=== PATIENT | female | born 1945 | race Caucasian/White ===

== ENCOUNTER → 2016-06-28 | Outpatient (CLI) | payer MEDICARE ==
[2014-04-08 13:26] VITALS: BP 121/60
[~2016-06-28] MED LIST: CETI10TA22 PO; ESTR1.5T2 PO; HYDR25TA9 PO; LEVO75TA PO; MELO-150 PO
--- NOTE | 2016-06-28 11:35 | KCIC ---
PROCEDURE Brain MRI without contrast. HISTORY Dizziness. Upper extremity numbness. TECHNIQUE Multiplanar and multi sequence magnetic resonance imaging of the brain was performed without contrast. COMPARISON None. FINDINGS There are foci of restricted diffusion within the right occipital lobe cortex, right caudate nucleus and putamen, and scattered throughout the bilateral frontal lobe cortex and subcortical white matter and the right parietal periventricular white matter, consistent with foci of acute or subacute infarction. There is no evidence of hemorrhage. There is no mass effect or midline shift. There are extensive scattered focal areas of T2/FLAIR hyperintensity throughout the cerebral white matter, likely due to chronic small vessel disease. There is cerebral volume loss with compensatory enlargement of the ventricles. The orbits are unremarkable. The paranasal sinuses mastoid air cells are unremarkable. There is a tiny focus of encephalomalacia within the left cerebellum. There is an absent flow void within the distal left vertebral artery, likely due to occlusion. IMPRESSION 1. Multiple foci of acute or subacute infarction within the bilateral cerebral cortex and subcortical white matter and right parietal periventricular white matter and right caudate nucleus and putamen. No associated hemorrhage is seen. 2. Absent flow void within the distal left internal carotid artery likely due to occlusion. This can be better assessed with a head MRA or head CTA. 3. Multiple scattered areas of signal change throughout the cerebral white matter, likely due to chronic small vessel disease. 4. Cerebral atrophy. Findings were discussed with the referring RN ADVICE, Mare Gold, at 1130 hours on 06/28/2016. Electronically signed by: Mare Fontana (Jun 28, 2016 11:33:50)
== END | disposition home or self-care (01) ==
LOC: KCIC MRI 09:35
PROVIDERS: ATTEND Family Medicine
DX: R42 Dizziness and giddiness (principal); R20.0 Anesthesia of skin
CPT/HCPCS: 70551

== ENCOUNTER 2016-06-29 17:16 | Inpatient (IN) | payer MEDICARE ==
[~2016-06-29] VITALS: Ht 157.5 cm; Wt 61.9 kg
--- NOTE | 2016-06-29 17:22 | PHYS DOC ---
Adult General Chief Complaint Chief Complaint: ABNORMAL LABS HPI HPI Patient is a 71 year old female presenting to the emergency department for evaluation of increased confusion and decreased energy left hand tingling left facial droop and possible worsening gait and speaking. Patient has been having some of these issues off and on for at least several weeks. Family has noticed the facial droop and abnormal gait over the past several days. Patient says that she feels well overall however family says that she is deathly off her baseline. She had an MRI done yesterday with the report as below. She does not take an aspirin daily. PROCEDURE Brain MRI without contrast. HISTORY Dizziness. Upper extremity numbness. TECHNIQUE Multiplanar and multi sequence magnetic resonance imaging of the brain was performed without contrast. COMPARISON None. FINDINGS There are foci of restricted diffusion within the right occipital lobe cortex, right caudate nucleus and putamen, and scattered throughout the bilateral frontal lobe cortex and subcortical white matter and the right parietal periventricular white matter, consistent with foci of acute or subacute infarction. There is no evidence of hemorrhage. There is no mass effect or midline shift. There are extensive scattered focal areas of T2/FLAIR hyperintensity throughout the cerebral white matter, likely due to chronic small vessel disease. There is cerebral volume loss with compensatory enlargement of the ventricles. The orbits are unremarkable. The paranasal sinuses mastoid air cells are unremarkable. There is a tiny focus of encephalomalacia within the left cerebellum. There is an absent flow void within the distal left vertebral artery, likely due to occlusion. IMPRESSION 1. Multiple foci of acute or subacute infarction within the bilateral cerebral cortex and subcortical white matter and right parietal periventricular white matter and right caudate nucleus and putamen. No associated hemorrhage is seen. 2. Absent flow void within the distal left internal carotid artery likely due to occlusion. This can be better assessed with a head MRA or head CTA. 3. Multiple scattered areas of signal change throughout the cerebral white matter, likely due to chronic small vessel disease. 4. Cerebral atrophy. Findings were discussed with the referring DERRICK BOAT OPERATOR, Mare Gold, at 1130 hours on 06/28/2016. Electronically signed by: Mare Owens (Jun 28, 2016 11:33:50) DICTATED and SIGNED BY: MARE OWENS MD DATE: 06/28/16 1135 Review of Systems Review of Systems Constitutional: Denies fever or chills [] Eyes: Denies change in visual acuity, redness, or eye pain [] HENT: Denies nasal congestion or sore throat [] Respiratory: Denies cough or shortness of breath [] Cardiovascular: No additional information not addressed in HPI [] GI: Denies abdominal pain, nausea, vomiting, bloody stools or diarrhea [] : Denies dysuria or hematuria [] Musculoskeletal: Denies back pain or joint pain [] Integument: Denies rash or skin lesions [] Neurologic: Denies headache, focal weakness. + sensory changes [] Allergies Allergies Allergies Coded Allergies Type Severity Reaction Last Updated Verified No Known Drug Allergies 04/08/14 No Physical Exam Physical Exam Constitutional: Well developed, well nourished, no acute distress, non-toxic appearance. [] HENT: Normocephalic, atraumatic, bilateral external ears normal, oropharynx moist, no oral exudates, nose normal. [] Eyes: PERRLA, EOMI, conjunctiva normal, no discharge. [] Neck: Normal range of motion, no tenderness, supple, no stridor. [] Cardiovascular:Heart rate regular rhythm, no murmur [] Lungs & Thorax: Bilateral breath sounds clear to auscultation [] Abdomen: Bowel sounds normal, soft, no tenderness, no masses, no pulsatile masses. [] Skin: Warm, dry, no erythema, no rash. [] Back: No tenderness, no CVA tenderness. [] Extremities: No tenderness, no cyanosis, no clubbing, ROM intact, no edema. [] Neurologic: Alert and oriented X 3, normal motor function, normal sensory function, no focal deficits noted. Normal cranial nerve II through XII. Finger to nose was slightly discriminated more so noted on left arm. Heel to trevino slightly desquamated bilaterally however grossly intact. Current Patient Data Vital Signs Vital Signs Date Time Temp Pulse Resp B/P Pulse Ox O2 Delivery O2 Flow Rate FiO2 06/29/16 17:28 98.4 78 18 162/70 99 Room Air 98.4 Lab Values Laboratory Tests Test 06/29/16 17:45 White Blood Count 11.8x10^3/uL (4.0-11.0) H Red Blood Count 4.46x10^6/uL (3.50-5.40) Hemoglobin 14.6g/dL (12.0-15.5) Hematocrit 42.6% (36.0-47.0) Mean Corpuscular Volume 96fL (79-100) Mean Corpuscular Hemoglobin 33pg (25-35) Mean Corpuscular Hemoglobin Concent 34g/dL (31-37) Red Cell Distribution Width 13.4% (11.5-14.5) Platelet Count 237x10^3/uL (140-400) Neutrophils (%) (Auto) 67% (31-73) Lymphocytes (%) (Auto) 22% (24-48) L Monocytes (%) (Auto) 8% (0-9) Eosinophils (%) (Auto) 2% (0-3) Basophils (%) (Auto) 1% (0-3) Neutrophils # (Auto) 8.0x10^3uL (1.8-7.7) H Lymphocytes # (Auto) 2.6x10^3/uL (1.0-4.8) Monocytes # (Auto) 0.9x10^3/uL (0.0-1.1) Eosinophils # (Auto) 0.2x10^3/uL (0.0-0.7) Basophils # (Auto) 0.1x10^3/uL (0.0-0.2) Prothrombin Time 12.9SEC (11.7-14.0) Prothrombin Time INR 1.0 (0.8-1.1) PTT 30SEC (24-38) Sodium Level 142mmol/L (136-145) Potassium Level 3.6mmol/L (3.5-5.1) Chloride Level 104mmol/L (98-107) Carbon Dioxide Level 29mmol/L (21-32) Anion Gap 9 (6-14) Blood Urea Nitrogen 15mg/dL (7-20) Creatinine 0.6mg/dL (0.6-1.0) Estimated GFR (Cockcroft-Gault) 98.3 BUN/Creatinine Ratio 25 (6-20) H Glucose Level 88mg/dL (70-99) Calcium Level 9.1mg/dL (8.5-10.1) Total Bilirubin 0.3mg/dL (0.2-1.0) Aspartate Amino Transferase (AST) 17U/L (15-37) Alanine Aminotransferase (ALT) 26U/L (14-59) Alkaline Phosphatase 45U/L (46-116) L Troponin I Quantitative < 0.017ng/mL (0.000-0.055) LP-Rsv-X-Type Natriuretic Peptide 31pg/mL (0-124) Total Protein 6.9g/dL (6.4-8.2) Albumin 3.6g/dL (3.4-5.0) Albumin/Globulin Ratio 1.1 (1.0-1.7) Thyroid Stimulating Hormone (TSH) 0.799uIU/mL (0.358-3.74) Laboratory Tests 06/29/16 17:45 Laboratory Tests 06/29/16 17:45 EKG EKG Normal sinus rhythm with normal axis no deviation with no ST elevation or depression and normal T waves. Radiology/Procedures Radiology/Procedures [] Course & Med Decision Making Course & Med Decision Making Patients with acute or subacute infarct on MRI which is concerning. I spoke to the neurologist Dr. mandujano and she recommended a daily aspirin and addition to usual stroke workup and admission for further evaluation and treatment. Patient accepted by Dr. Duncan. Dragcristian Disclaimer Dragon Disclaimer This electronic medical record was generated, in whole or in part, using a voice recognition dictation system. Departure Departure Impression: Primary Impression: Acute CVA (cerebrovascular accident) Disposition: ADMITTED INPATIENT Admitting Physician: Kacey Duncan Condition: STABLE Referrals: LESLIE HU MD (PCP) VÍCTOR BENTLEY DO Jun 29, 2016 17:22
[2016-06-29] MEDS ORDERED: ONDANSETRON PF 4 MG/2 ML VIAL. IV PRN (18:00)
[2016-06-29] MEDS ORDERED: fentaNYL PF VIAL 100 MCG/2 ML VIAL IV PRN (18:00)
[2016-06-29] MEDS ORDERED: ASPIRIN ENTERIC COATED 325 MG TABLET.DR. PO ONE (18:00)
[2016-06-29 18:08] LABS: BASO # 0.1 x10^3/uL (0.0-0.2); BASO % 1 % (0-3); EOS % 2 % (0-3); HEMATOCRIT 42.6 % (36.0-47.0); HEMOGLOBIN 14.6 g/dL (12.0-15.5); LYMPH # 2.6 x10^3/uL (1.0-4.8); LYMPH % 22 % (24-48); MEAN CORPUSCULAR HEMOGLOBIN 33 pg (25-35); MEAN CORPUSCULAR HGB CONC 34 g/dL (31-37); MEAN CORPUSCULAR VOLUME 96 fL (79-100); MONO % 8 % (0-9); NEUT % 67 % (31-73); PLATELET COUNT 237 x10^3/uL (140-400); RED BLOOD COUNT 4.46 x10^6/uL (3.50-5.40); RED CELL DISTRIBUTION WIDTH 13.4 % (11.5-14.5); WHITE BLOOD COUNT 11.8 x10^3/uL (4.0-11.0)
[2016-06-29 18:16] LABS: PROTHROMBIN TIME PATIENT 12.9 SEC (11.7-14.0)
[2016-06-29 19:03] LABS: CALCIUM 9.1 mg/dL (8.5-10.1); CREATININE 0.6 mg/dL (0.6-1.0); GFR 98.3; POTASSIUM 3.6 mmol/L (3.5-5.1)
--- NOTE | 2016-06-29 19:07 | ACF ---
Admission Forms Criteria TELEMETRY CARE Telemetry Admission Guidelines (Place 'X' for any and all applicable criteria): Admission to telemetry [A] may be indicated for ANY ONE of the following(1)(2)(3 )(4)(5): [ ]I. Cardiac disease, including ANY ONE of the following (9)(10)(11)(12)(13 ): [ ]a) Postacute DE [ ]b) Low-risk patients with ST-segment elevation DE who have undergone successful percutaneous coronary intervention [ ]c) Unstable angina [ ]d) Suspected DE (until it is ruled out) [ ]e) Post cardiac surgery (first 48 to 72 hours unless complications occur) [ ]f) Acute arrhythmias (including significant tachycardia or bradycardia) [B] [ ]g) Firing of an implantable cardioverter defibrillator [C] [ ]h) Suspected pacemaker or implantable cardioverter defibrillator malfunction (10) [ ]i) New administration or adjustment of an antiarrhythmic drug [D ] [ ]j) Child admitted for acute congestive heart failure [ ]j) Long QT syndrome [ ]k) Advanced heart block (eg, second-degree Mobitz type II, third- degree heart block) [ ]l) Acute myocarditis or pericarditis [ ]m) Short-term (ambulatory or inpatient) monitoring after a cardiac procedure as indicated by ANY ONE of the following [E]: [ ]i) Electrophysiologic studies [ ]ii) Percutaneous coronary intervention with stent placement [ ]iii) Pacemaker placement with cardiac conduction defect [ ]iv) Implantable cardiac defibrillator placement [ ]II. Drug overdose or poisoning with substance that causes arrhythmias or QT prolongation (eg, phenothiazines, sympathomimetic agents, cyclic antidepressants, digitalis, antiarrhythmic drugs)(15) [ ]III. Short-term (ambulatory or inpatient) monitoring after therapeutic or diagnostic procedure requiring conscious sedation or anesthesia (eg, endoscopy, elective cardioversion) [x]IV. Acute cerebrovascular even[F](18) [ ]V. Massive blood transfusion (eg, at least 10 units of packed red blood cells in 24 hours) [ ]. Variceal bleeding after endoscopy, sclerotherapy, or IV vasopressin [ ]VII. Uncorrected electrolyte abnormalities associated with an increased risk of dangerous arrhythmia [G]; examples include [ ]a) Hyperkalemia with attributable ECG changes [ ]b) Potassium greater than 6.5 mmol/L (mEq/L) in a patient without history of chronic renal disease [ ]c) Prolonged QT attributed to hypokalemia, hypomagnesemia, or hypocalcemia [ ]VIII.Unexplained syncope or other neurologic event suspected of being due to arrhythmia due to a finding that increases risk; examples include(19)(20)(21): [ ]a) High-risk ECG findings (eg, bifascicular block, bradycardia, abnormal QT interval, ventricular pre- excitation) [ ]b) History of previous syncope due to arrhythmia [ ]c) Abnormal ventricular function (eg, reduced ejection fraction ) [ ]d) Exertional or supine syncope [ ]e) Concerning syncope characteristics (eg, sudden loss of consciousness without prodrome) [ ]f) Family history of sudden [ ]g) Use of arrhythmogenic medication [ ]h) Suspected cardiac ischemia [ ]i) Known channelopathy (eg, long QT syndrome, Brugada syndrome, or catecholaminergic paroxysmal ventricular tachycardia) [ ]j) Known structural heart disease (eg, hypertrophic cardiomyopathy , severe valvular disease) [ ]k) Palpitations preceding syncope The original [employer] content created by [employer] has been revised. The portions of the content which have been revised are identified through the use of italic text or in bold, and [employer] has neither reviewed nor approved the modified material. All other unmodified content is copyright [employer]. Please see references footnoted in the original [employer] edition 2015 Admission Criteria Met?: Yes IQRA CALZADA Jun 29, 2016 19:07
[2016-06-29 19:08] LABS: ALBUMIN 3.6 g/dL (3.4-5.0); ALBUMIN/GLOBULIN RATIO 1.1 (1.0-1.7); TOTAL BILIRUBIN 0.3 mg/dL (0.2-1.0); TOTAL PROTEIN 6.9 g/dL (6.4-8.2)
[2016-06-29 19:35] VITALS: BP 141/60
--- NOTE | 2016-06-29 21:48 | RAD ---
PROCEDURE Carotid duplex examination HISTORY Stroke. TECHNIQUE Duplex sonography of the cervical portion of both carotid arteries was performed including color flow imaging and spectral waveform analysis with flow velocity measurement and rodriguez scale evaluation. COMPARISON None available. FINDINGS Right side: Peak systolic flow velocity of the CCA is 60 cm/sec. Peak systolic flow velocity of the ICA is 60 cm/sec. Thus, the ICA/CCA ratio is 1. Peak end diastolic flow velocity of the ICA is 35 cm/sec. The peak systolic velocity of the ECA is 91 cm/sec. Left side: Peak systolic flow velocity of the CCA is 43 cm/sec. Peak systolic flow velocity of the ICA is 0 cm/sec. Thus, the ICA/CCA ratio is 0. Peak end diastolic flow velocity of the ICA is 0 cm/sec. Peak systolic flow velocity of the ECA is 60 cm/sec. The left ICA is occluded. There is abnormal waveform within the right ICA. There is a high resistance waveform of the diastolic flow within the right ICA consistent with more distal occlusion. In addition, there is trickle flow through the proximal and mid right ICA. Antegrade vertebral flow is seen bilaterally. IMPRESSION Occluded left ICA. Based on abnormal waveforms, there is a probable distal right ICA occlusion as well. Trickle flow is seen within the more proximal to mid right ICA. MRA of the head/neck may be helpful for further evaluation. Note-this report was called to the patient's floor nurse Carisa at 9:46 p.m. on June 29, 2016. Electronically signed by: Sharad Shi MD (Jun 29, 2016 21:46:36)
[2016-06-29] MEDS ORDERED: predniSONE 20 MG TABLET PO ONE (23:30)
[2016-06-29 23:35] VITALS: BP 109/43
[2016-06-30 03:30] VITALS: BP 132/56
--- NOTE | 2016-06-30 04:04 | HP ---
ADMIT DATE: 06/29/2016 CHIEF COMPLAINT: Mental status change, abnormal MRI. 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 Her granddaughter is a nurse in our ICU. She states that the patient was sent for an MRI and the doctor called her and states that the MRI was abnormal and she wanted her to go to the hospital. After being evaluated in our Emergency Room, we have admitted her to the floor. We have consulted Dr. Russell. It appears she has multiple strokes on her MRI. 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 I plan to check a sed rate to make sure that the patient is not having some type of vasculitis as well. PAST MEDICAL HISTORY: Asthma, hypothyroidism, allergic rhinitis, hypertension. ALLERGIES: None. FAMILY HISTORY: Hypertension. SOCIAL HISTORY: She is retired. She does not drink, smoke or take drugs. She lives at home with her granddaughter. MEDICATIONS: Reviewed, please refer to the MRAD. REVIEW OF SYSTEMS: Unobtainable. The patient is too confused, but the granddaughter explains that she has been having intermittent bouts of blindness and mental status change. PHYSICAL EXAMINATION: VITAL SIGNS: Temperature afebrile, pulse 78, respirations 18, blood pressure 144/90. GENERAL: She is awake. She seems like she understands what I am saying, but she really does not answer my questions very well. HEART: Distant S1, S2. LUNGS: Clear. ABDOMEN: Soft, decreased bowel sounds. EXTREMITIES: Trace edema. SKIN: No rashes. PSYCHIATRIC: She is depressed. VASCULAR: Good capillary refill. ENDOCRINE: No thyromegaly. LYMPHATICS: No cervical nodes. HEMATOPOIETIC: No obvious bruising. NEUROLOGICAL: She moves all extremities. She is able to tell me her name. She does not really tell me the year, although when I asked her if it is 2017, she says yes and seems to really understand that it actually is the right year. LABORATORY DATA: White count was elevated at 11. The other labs were basically normal. MRI of the brain shows multiple areas of strokes. 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 ASSESSMENT AND PLAN: Multiple areas of strokes with abnormal MRI imaging and abnormal ultrasound of the carotids in an elderly female who has also been having intermittent episodes of possible amaurosis fugax. I am going to check a sed rate. We have consulted Dr. Russell. We are going to check an MRA of the brain. I will empirically start her on prednisone 60 mg until the sed rate gets back. If it is high, we will continue with the prednisone. Physical therapy, occupational therapy to evaluate and treat. Continue home medicines, cardiac monitoring. Would like to consider heparin therapy, but we will await Dr. Russell's input. She will almost certainly need fpc unit after this admit, but the family is still considering other options with this. Long-term prognosis is guarded. We will also check urinalysis. AMY ALFORD DO DR: WILMAN/mi JOB#: [id number] / [id number]
[2016-06-30 05:16] LABS: CHOLESTEROL/HDL RATIO 3.6
[2016-06-30 05:22] LABS: BASO % 0 % (0-3); EOS % 2 % (0-3); HEMATOCRIT 40.9 % (36.0-47.0); HEMOGLOBIN 14.2 g/dL (12.0-15.5); LYMPH # 2.3 x10^3/uL (1.0-4.8); LYMPH % 22 % (24-48); MEAN CORPUSCULAR HEMOGLOBIN 33 pg (25-35); MEAN CORPUSCULAR HGB CONC 35 g/dL (31-37); MEAN CORPUSCULAR VOLUME 94 fL (79-100); MONO % 7 % (0-9); NEUT % 69 % (31-73); PLATELET COUNT 228 x10^3/uL (140-400); RED BLOOD COUNT 4.35 x10^6/uL (3.50-5.40); RED CELL DISTRIBUTION WIDTH 13.4 % (11.5-14.5); WHITE BLOOD COUNT 10.6 x10^3/uL (4.0-11.0)
[2016-06-30 05:31] LABS: ALBUMIN 3.2 g/dL (3.4-5.0); ALBUMIN/GLOBULIN RATIO 0.9 (1.0-1.7); CALCIUM 8.7 mg/dL (8.5-10.1); CREATININE 0.6 mg/dL (0.6-1.0); GFR 98.3; POTASSIUM 3.2 mmol/L (3.5-5.1); TOTAL BILIRUBIN 0.5 mg/dL (0.2-1.0); TOTAL PROTEIN 6.6 g/dL (6.4-8.2)
[2016-06-30] MEDS: LEVOTHYROXINE 75 MCG TABLET PO SCH (06:34)
[2016-06-30 07:00] VITALS: BP 130/54
--- NOTE | 2016-06-30 07:31 | PDOC ---
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 consulted, Telemetry PT/OT bedside speech and swallow Lipid Panel better. Vitals Vitals Vital Signs Date Time Temp Pulse Resp B/P Pulse Ox O2 Delivery O2 Flow Rate FiO2 06/30/16 03:30 97.9 74 18 132/56 93 Room Air 97.9 Physical Exam General: Alert, Oriented X3, Cooperative Heart: Normal S1, Normal S2 Lungs: Clear, Wheezing Extremities: Other (rue ST 4/5) Labs LABS Laboratory Tests Test 06/29/16 17:45 06/30/16 04:10 06/30/16 04:30 White Blood Count 11.8x10^3/uL (4.0-11.0) 10.6x10^3/uL (4.0-11.0) Red Blood Count 4.46x10^6/uL (3.50-5.40) 4.35x10^6/uL (3.50-5.40) Hemoglobin 14.6g/dL (12.0-15.5) 14.2g/dL (12.0-15.5) Hematocrit 42.6% (36.0-47.0) 40.9% (36.0-47.0) Mean Corpuscular Volume 96fL (79-100) 94fL (79-100) Mean Corpuscular Hemoglobin 33pg (25-35) 33pg (25-35) Mean Corpuscular Hemoglobin Concent 34g/dL (31-37) 35g/dL (31-37) Red Cell Distribution Width 13.4% (11.5-14.5) 13.4% (11.5-14.5) Platelet Count 237x10^3/uL (140-400) 228x10^3/uL (140-400) Neutrophils (%) (Auto) 67% (31-73) 69% (31-73) Lymphocytes (%) (Auto) 22% (24-48) 22% (24-48) Monocytes (%) (Auto) 8% (0-9) 7% (0-9) Eosinophils (%) (Auto) 2% (0-3) 2% (0-3) Basophils (%) (Auto) 1% (0-3) 0% (0-3) Neutrophils # (Auto) 8.0x10^3uL (1.8-7.7) 7.3x10^3uL (1.8-7.7) Lymphocytes # (Auto) 2.6x10^3/uL (1.0-4.8) 2.3x10^3/uL (1.0-4.8) Monocytes # (Auto) 0.9x10^3/uL (0.0-1.1) 0.7x10^3/uL (0.0-1.1) Eosinophils # (Auto) 0.2x10^3/uL (0.0-0.7) 0.2x10^3/uL (0.0-0.7) Basophils # (Auto) 0.1x10^3/uL (0.0-0.2) 0.0x10^3/uL (0.0-0.2) Prothrombin Time 12.9SEC (11.7-14.0) Prothromb Time International Ratio 1.0 (0.8-1.1) Activated Partial Thromboplast Time 30SEC (24-38) Sodium Level 142mmol/L (136-145) 141mmol/L (136-145) Potassium Level 3.6mmol/L (3.5-5.1) 3.2mmol/L (3.5-5.1) Chloride Level 104mmol/L (98-107) 105mmol/L (98-107) Carbon Dioxide Level 29mmol/L (21-32) 29mmol/L (21-32) Anion Gap 9 (6-14) 7 (6-14) Blood Urea Nitrogen 15mg/dL (7-20) 16mg/dL (7-20) Creatinine 0.6mg/dL (0.6-1.0) 0.6mg/dL (0.6-1.0) Estimated GFR (Cockcroft-Gault) 98.3 98.3 BUN/Creatinine Ratio 25 (6-20) 27 (6-20) Glucose Level 88mg/dL (70-99) 110mg/dL (70-99) Calcium Level 9.1mg/dL (8.5-10.1) 8.7mg/dL (8.5-10.1) Total Bilirubin 0.3mg/dL (0.2-1.0) 0.5mg/dL (0.2-1.0) Aspartate Amino Transf (AST/SGOT) 17U/L (15-37) 16U/L (15-37) Alanine Aminotransferase (ALT/SGPT) 26U/L (14-59) 22U/L (14-59) Alkaline Phosphatase 45U/L (46-116) 45U/L (46-116) Troponin I Quantitative < 0.017ng/mL (0.000-0.055) AK-Cat-G-Type Natriuretic Peptide 31pg/mL (0-124) Total Protein 6.9g/dL (6.4-8.2) 6.6g/dL (6.4-8.2) Albumin 3.6g/dL (3.4-5.0) 3.2g/dL (3.4-5.0) Albumin/Globulin Ratio 1.1 (1.0-1.7) 0.9 (1.0-1.7) Thyroid Stimulating Hormone (TSH) 0.799uIU/mL (0.358-3.74) Triglycerides Level 115mg/dL (0-150) Cholesterol Level 149mg/dL (0-200) LDL Cholesterol, Calculated 85mg/dL (0-100) VLDL Cholesterol, Calculated 23mg/dL (0-40) Non-HDL Cholesterol Calculated 108mg/dL (0-129) HDL Cholesterol 41mg/dL (40-60) Cholesterol/HDL Ratio 3.6 Assessment and Plan Assessmemt and Plan Problems Medical Problems: (1) Acute CVA (cerebrovascular accident) Status: Acute Problems: Comment Review of Relevant I have reviewed the following items page (where applicable) has been applied. Labs Laboratory Tests Test 06/29/16 17:45 06/30/16 04:10 06/30/16 04:30 White Blood Count 11.8x10^3/uL (4.0-11.0) 10.6x10^3/uL (4.0-11.0) Red Blood Count 4.46x10^6/uL (3.50-5.40) 4.35x10^6/uL (3.50-5.40) Hemoglobin 14.6g/dL (12.0-15.5) 14.2g/dL (12.0-15.5) Hematocrit 42.6% (36.0-47.0) 40.9% (36.0-47.0) Mean Corpuscular Volume 96fL (79-100) 94fL (79-100) Mean Corpuscular Hemoglobin 33pg (25-35) 33pg (25-35) Mean Corpuscular Hemoglobin Concent 34g/dL (31-37) 35g/dL (31-37) Red Cell Distribution Width 13.4% (11.5-14.5) 13.4% (11.5-14.5) Platelet Count 237x10^3/uL (140-400) 228x10^3/uL (140-400) Neutrophils (%) (Auto) 67% (31-73) 69% (31-73) Lymphocytes (%) (Auto) 22% (24-48) 22% (24-48) Monocytes (%) (Auto) 8% (0-9) 7% (0-9) Eosinophils (%) (Auto) 2% (0-3) 2% (0-3) Basophils (%) (Auto) 1% (0-3) 0% (0-3) Neutrophils # (Auto) 8.0x10^3uL (1.8-7.7) 7.3x10^3uL (1.8-7.7) Lymphocytes # (Auto) 2.6x10^3/uL (1.0-4.8) 2.3x10^3/uL (1.0-4.8) Monocytes # (Auto) 0.9x10^3/uL (0.0-1.1) 0.7x10^3/uL (0.0-1.1) Eosinophils # (Auto) 0.2x10^3/uL (0.0-0.7) 0.2x10^3/uL (0.0-0.7) Basophils # (Auto) 0.1x10^3/uL (0.0-0.2) 0.0x10^3/uL (0.0-0.2) Prothrombin Time 12.9SEC (11.7-14.0) Prothromb Time International Ratio 1.0 (0.8-1.1) Activated Partial Thromboplast Time 30SEC (24-38) Sodium Level 142mmol/L (136-145) 141mmol/L (136-145) Potassium Level 3.6mmol/L (3.5-5.1) 3.2mmol/L (3.5-5.1) Chloride Level 104mmol/L (98-107) 105mmol/L (98-107) Carbon Dioxide Level 29mmol/L (21-32) 29mmol/L (21-32) Anion Gap 9 (6-14) 7 (6-14) Blood Urea Nitrogen 15mg/dL (7-20) 16mg/dL (7-20) Creatinine 0.6mg/dL (0.6-1.0) 0.6mg/dL (0.6-1.0) Estimated GFR (Cockcroft-Gault) 98.3 98.3 BUN/Creatinine Ratio 25 (6-20) 27 (6-20) Glucose Level 88mg/dL (70-99) 110mg/dL (70-99) Calcium Level 9.1mg/dL (8.5-10.1) 8.7mg/dL (8.5-10.1) Total Bilirubin 0.3mg/dL (0.2-1.0) 0.5mg/dL (0.2-1.0) Aspartate Amino Transf (AST/SGOT) 17U/L (15-37) 16U/L (15-37) Alanine Aminotransferase (ALT/SGPT) 26U/L (14-59) 22U/L (14-59) Alkaline Phosphatase 45U/L (46-116) 45U/L (46-116) Troponin I Quantitative < 0.017ng/mL (0.000-0.055) IY-Bgh-Q-Type Natriuretic Peptide 31pg/mL (0-124) Total Protein 6.9g/dL (6.4-8.2) 6.6g/dL (6.4-8.2) Albumin 3.6g/dL (3.4-5.0) 3.2g/dL (3.4-5.0) Albumin/Globulin Ratio 1.1 (1.0-1.7) 0.9 (1.0-1.7) Thyroid Stimulating Hormone (TSH) 0.799uIU/mL (0.358-3.74) Triglycerides Level 115mg/dL (0-150) Cholesterol Level 149mg/dL (0-200) LDL Cholesterol, Calculated 85mg/dL (0-100) VLDL Cholesterol, Calculated 23mg/dL (0-40) Non-HDL Cholesterol Calculated 108mg/dL (0-129) HDL Cholesterol 41mg/dL (40-60) Cholesterol/HDL Ratio 3.6 Laboratory Tests Test 06/29/16 17:45 06/30/16 04:10 06/30/16 04:30 White Blood Count 11.8x10^3/uL (4.0-11.0) 10.6x10^3/uL (4.0-11.0) Red Blood Count 4.46x10^6/uL (3.50-5.40) 4.35x10^6/uL (3.50-5.40) Hemoglobin 14.6g/dL (12.0-15.5) 14.2g/dL (12.0-15.5) Hematocrit 42.6% (36.0-47.0) 40.9% (36.0-47.0) Mean Corpuscular Volume 96fL (79-100) 94fL (79-100) Mean Corpuscular Hemoglobin 33pg (25-35) 33pg (25-35) Mean Corpuscular Hemoglobin Concent 34g/dL (31-37) 35g/dL (31-37) Red Cell Distribution Width 13.4% (11.5-14.5) 13.4% (11.5-14.5) Platelet Count 237x10^3/uL (140-400) 228x10^3/uL (140-400) Neutrophils (%) (Auto) 67% (31-73) 69% (31-73) Lymphocytes (%) (Auto) 22% (24-48) 22% (24-48) Monocytes (%) (Auto) 8% (0-9) 7% (0-9) Eosinophils (%) (Auto) 2% (0-3) 2% (0-3) Basophils (%) (Auto) 1% (0-3) 0% (0-3) Neutrophils # (Auto) 8.0x10^3uL (1.8-7.7) 7.3x10^3uL (1.8-7.7) Lymphocytes # (Auto) 2.6x10^3/uL (1.0-4.8) 2.3x10^3/uL (1.0-4.8) Monocytes # (Auto) 0.9x10^3/uL (0.0-1.1) 0.7x10^3/uL (0.0-1.1) Eosinophils # (Auto) 0.2x10^3/uL (0.0-0.7) 0.2x10^3/uL (0.0-0.7) Basophils # (Auto) 0.1x10^3/uL (0.0-0.2) 0.0x10^3/uL (0.0-0.2) Prothrombin Time 12.9SEC (11.7-14.0) Prothromb Time International Ratio 1.0 (0.8-1.1) Activated Partial Thromboplast Time 30SEC (24-38) Sodium Level 142mmol/L (136-145) 141mmol/L (136-145) Potassium Level 3.6mmol/L (3.5-5.1) 3.2mmol/L (3.5-5.1) Chloride Level 104mmol/L (98-107) 105mmol/L (98-107) Carbon Dioxide Level 29mmol/L (21-32) 29mmol/L (21-32) Anion Gap 9 (6-14) 7 (6-14) Blood Urea Nitrogen 15mg/dL (7-20) 16mg/dL (7-20) Creatinine 0.6mg/dL (0.6-1.0) 0.6mg/dL (0.6-1.0) Estimated GFR (Cockcroft-Gault) 98.3 98.3 BUN/Creatinine Ratio 25 (6-20) 27 (6-20) Glucose Level 88mg/dL (70-99) 110mg/dL (70-99) Calcium Level 9.1mg/dL (8.5-10.1) 8.7mg/dL (8.5-10.1) Total Bilirubin 0.3mg/dL (0.2-1.0) 0.5mg/dL (0.2-1.0) Aspartate Amino Transf (AST/SGOT) 17U/L (15-37) 16U/L (15-37) Alanine Aminotransferase (ALT/SGPT) 26U/L (14-59) 22U/L (14-59) Alkaline Phosphatase 45U/L (46-116) 45U/L (46-116) Troponin I Quantitative < 0.017ng/mL (0.000-0.055) LS-Bhi-E-Type Natriuretic Peptide 31pg/mL (0-124) Total Protein 6.9g/dL (6.4-8.2) 6.6g/dL (6.4-8.2) Albumin 3.6g/dL (3.4-5.0) 3.2g/dL (3.4-5.0) Albumin/Globulin Ratio 1.1 (1.0-1.7) 0.9 (1.0-1.7) Thyroid Stimulating Hormone (TSH) 0.799uIU/mL (0.358-3.74) Triglycerides Level 115mg/dL (0-150) Cholesterol Level 149mg/dL (0-200) LDL Cholesterol, Calculated 85mg/dL (0-100) VLDL Cholesterol, Calculated 23mg/dL (0-40) Non-HDL Cholesterol Calculated 108mg/dL (0-129) HDL Cholesterol 41mg/dL (40-60) Cholesterol/HDL Ratio 3.6 Medications Current Medications Aspirin (Ecotrin) 325 mg 1X ONCE PO Last administered on 06/29/16t 18:04; Start 06/29/16 at 18:00; Stop 06/29/16 at 18:01; Status DC Ondansetron HCl (Zofran) 4 mg PRN Q8HRS PRN IV NAUSEA/VOMITING; Start 06/29/16 at 18:00; Stop 06/30/16 at 17:59 Fentanyl Citrate (Fentanyl 2ml Vial) 50 mcg PRN Q2HR PRN IV PAIN; Start at 18:00; Stop 06/30/16 at 17:59 Cetirizine HCl (Zyrtec) 10 mg DAILY PO ; Start 06/30/16 at 09:00 Hydrochlorothiazide (Hydrodiuril) 25 mg DAILY PO ; Start 06/30/16 at 09:00 Levothyroxine Sodium (Synthroid) 75 mcg DAILY07 PO Last administered on 06:34; Start 06/30/16 at 07:00 Non-Formulary Medication 1.5 mg DAILY PO ; Start 06/30/16 at 09:00; Status UNV Meloxicam (Mobic) 15 mg DAILY PO ; Start 06/30/16 at 09:00 Prednisone (Prednisone) 60 mg 1X ONCE PO Last administered on 06/30/16 02:19 ; Start 06/29/16 at 23:30; Stop 06/29/16 at 23:31; Status DC Active Scripts Active Reported Zyrtec (Cetirizine Hcl) 10 Mg Tablet 10 Mg PO DAILY Estropipate 1.5 Mg Tablet 1.5 Mg PO DAILY Hydrochlorothiazide Tablet (Hydrochlorothiazide) 25 Mg Tablet 1 Tab PO DAILY Synthroid (Levothyroxine Sodium) 75 Mcg Tablet 1 Tab PO DAILY Meloxicam 15 Mg Tablet 1 Tab PO DAILY Vitals/I & O Vital Sign - Last 24 Hours 06/29/16 06/29/16 06/29/16 06/29/16 17:28 18:00 19:00 19:35 Temp 98.4 97.7 98.4 97.7 Pulse 78 77 74 69 Resp 18 18 18 18 B/P 162/70 142/77 133/74 141/60 Pulse Ox 99 99 99 95 O2 Delivery Room Air Room Air Room Air Room Air 06/29/16 06/29/16 06/30/16 20:00 23:35 03:30 Temp 97.5 97.9 97.5 97.9 Pulse 72 74 Resp 18 18 B/P 109/43 132/56 Pulse Ox 94 93 O2 Delivery Room Air Room Air Room Air Intake and Output 06/29/16 06/29/16 06/30/16 15:00 23:00 07:00 Intake Total 50 ml Balance 50 ml DEANNA BONILLA MD Jun 30, 2016 07:31
[2016-06-30] MEDS: CETIRIZINE HCL 10 MG TABLET. PO SCH (08:25)
[2016-06-30] MEDS: MELOXICAM 7.5 MG TABLET PO SCH (08:25)
[2016-06-30] MEDS: HYDROCHLOROTHIAZIDE 25 MG TABLET PO SCH (08:25)
[2016-06-30] MEDS: [UNRECOGNIZED DRUG - OTHER] PO SCH (09:00)
[2016-06-30 11:00] VITALS: BP 112/58
[2016-06-30] MEDS: LEVOFLOXACIN 500 MG TABLET PO SCH (11:09)
[2016-06-30] MEDS: ASPIRIN 325 MG TABLET PO SCH (11:12)
--- NOTE | 2016-06-30 13:09 | PDOC ---
Provider Note Provider Note Vascular Consult dictated Imp: Occluded lt ICA Possible occluded rt. ICA but perhaps a trickle of blood flow Plan: CT angio of arch and carotids in AM Add plavix 75 daily MARITZA HUTCHISON MD Jun 30, 2016 13:09
[2016-06-30] MEDS ORDERED: IOHEXOL 350 MG/ML 100 ML VIAL. IV ONE ×2 (13:30)
[2016-06-30] MEDS ORDERED: CONTRAST GIVEN MC PRN (13:45)
[2016-06-30 15:00] VITALS: BP 122/57
--- NOTE | 2016-06-30 16:10 | PDOC2 ---
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 Metabolic encephalopathy. Right side weakness since 06/29. Left ICA occlusion. Right distal ICA occlusion? HTN Hypothyroidism. Chronic smoking x 55 years. RECOMMENDATIONS/PLAN: Plavix 75 mg q am. ASA 325 mg daily. Vascular Surgery consulted and Plavix and ASA per VS. Carotid A US + Doppler, performed. Brain MRI was performed on 06/28. Echo pending. Lipid panel WNL CAT per VS. OT/PT. Discussed in detail with her family at bedside on 06/30. HISTORY OF THE PRESENT ILLNESS: 71-y-old female patient with above medical diseases and longstanding Hx of smoking for about 1 pack a day to recently several cigarettes a day for about 55 years developed symptoms of mental status changes, confusion and weakness. She had brain MRI on 06/28 which showed multiple acute and subacute infarcts in bilateral hemispheres. She was hospitalized on 06/29 and her Carotid A US revealed occlusion of left ICA and possible occlusion of right distal ICA. Patient received treatment and VS consulted. PAST MEDICAL HISTORY: Please see above. PAST SURGERY HISTORY: No major surgery recently. ALLERGY: Reviewed. MEDICATIONS: Refer to [facility] FAMILY HISTORY: HTN SOCIAL HISTORY: Lives at home. Patient initially denies smoking, drinking, and illicit drug use, but her family stated she has been smoking, eventually patient admitted that she smoked 1 pack of cigarettes a day for about 55 years, but she decreased smoking to several cigarettes a day now. REVIEW OF SYSTEMS: Constitutional: No cachexia. Head: No recent traumatic brain or head injury. Skin: No edema, or rash. Ear: No infection, tinnitus. Eyes: No vision loss or color blindness. Nose: No bleeding or purulent discharges. Hearing: Mild hearing decrease. Neck: No injury. Breast: No history of cancer, masses,or discharges. Cardiac: No AR, arrhythmia. HTN ? Pulmonary: Smoking. GI: No GI ulcer, GI bleeding. Urinary/genital: UTI. Endocrinologic: No cousin face, craniofacial dysmorphism, polydactyly, goiter. Skeletomuscular: No muscular atrophy, deformity. Neurological: see HP. Psychiatric: smoking. Otherwise, not [id number] review of systems. PHYSICAL EXAMINATION: General appearance is in subacute distress. HEENT: Normocephalic and nontraumatic. Eyes, nose, ears, and throat are unremarkable. Neck is supple. No lymphadenopathy. No crepitus. Cardiovascular: S1, S2, regular rate and rhythm. Pulmonary: Clear to auscultation bilaterally. Abdomen: Bowel sounds are positive. Extremities: No rash, lesions, or edema. NEUROLOGICAL EXAMINATION: Awake. Oriented to time, place and person. PERRL. EOMI. CN: no focal findings. Muscle tone: decreased in right UE and LE. Within normal in lefts adriel. Muscle strength: 4- right UE and LE, 5 left side. DTR: 2 Plantar reflex: Neutral response bilaterally Gait: not examined in chair. Sensory exam: no acute abnormal findings. No obvious cerebellar signs elicited. F-T-N test fine. Current Medications Current Medications Current Medications Aspirin (Ecotrin) 325 mg 1X ONCE PO Last administered on 06/29/16 18:04; Start 06/29/16 at 18:00; Stop 06/29/16 at 18:01; Status DC Ondansetron HCl (Zofran) 4 mg PRN Q8HRS PRN IV NAUSEA/VOMITING; Start 06/29/16 at 18:00; Stop 06/30/16 at 17:59 Fentanyl Citrate (Fentanyl 2ml Vial) 50 mcg PRN Q2HR PRN IV PAIN; Start at 18:00; Stop 06/30/16 at 17:59 Cetirizine HCl (Zyrtec) 10 mg DAILY PO Last administered on 06/30/16 08:25; Start 06/30/16 at 09:00 Hydrochlorothiazide (Hydrodiuril) 25 mg DAILY PO Last administered on 08:25; Start 06/30/16 at 09:00 Levothyroxine Sodium (Synthroid) 75 mcg DAILY07 PO Last administered on 06:34; Start 06/30/16 at 07:00 Non-Formulary Medication 1.5 mg DAILY PO Last administered on 06/30/16 09:00; Start 06/30/16 at 09:00; Status UNV Meloxicam (Mobic) 15 mg DAILY PO Last administered on 06/30/16 08:25; Start at 09:00 Prednisone (Prednisone) 60 mg 1X ONCE PO Last administered on 06/30/16 02:19 ; Start 06/29/16 at 23:30; Stop 06/29/16 at 23:31; Status DC Levofloxacin (Levaquin) 500 mg DAILY06 PO ; Start 06/30/16 at 11:30; Stop at 11:29 Ergocalciferol (Vitamin D2) 50,000 unit WEEKLY PO ; Start 07/01/16 at 09:00 Lactobacillus Acidophilus (Bacid, Wendy-Bid) 1 tab DAILY PO ; Start 07/01/16 at 09 :00 Aspirin ([place] Aspirin) 325 mg DAILYWBKFT PO Last administered on 06/30/16 11: 12; Start 06/30/16 at 12:00 Clopidogrel Bisulfate (Plavix) 75 mg DAILYWBKFT PO ; Start 07/01/16 at 08:00 Iohexol (Omnipaque 350 Mg/ml) 100 ml 1X ONCE IV Last administered on 13:30; Start 06/30/16 at 13:30; Stop 06/30/16 at 13:39; Status DC Iohexol (Omnipaque 350 Mg/ml) 100 ml 1X ONCE IV Last administered on 13:30; Start 06/30/16 at 13:30; Stop 06/30/16 at 13:39; Status DC Info (Do NOT chart on this entry -- for MONITORING) 1 each PRN DAILY PRN MC SEE COMMENTS; Start 06/30/16 at 13:45; Stop 07/02/16 at 13:44 Active Scripts Active Reported Zyrtec (Cetirizine Hcl) 10 Mg Tablet 10 Mg PO DAILY Estropipate 1.5 Mg Tablet 1.5 Mg PO DAILY Hydrochlorothiazide Tablet (Hydrochlorothiazide) 25 Mg Tablet 1 Tab PO DAILY Synthroid (Levothyroxine Sodium) 75 Mcg Tablet 1 Tab PO DAILY Meloxicam 15 Mg Tablet 1 Tab PO DAILY Allergies Allergies: Coded Allergies: No Known Drug Allergies (Unverified , 04/08/14) Vitals VITALS Vital Signs Date Time Temp Pulse Resp B/P Pulse Ox O2 Delivery O2 Flow Rate FiO2 06/30/16 15:00 97.2 79 20 122/57 96 Room Air 97.2 Labs Labs Laboratory Tests Test 06/29/16 04:10 06/29/16 17:45 4/30/17 04:10 06/30/16 04:30 Erythrocyte Sedimentation Rate 10 (0-25) White Blood Count 11.8x10^3/uL (4.0-11.0) 10.6x10^3/uL (4.0-11.0) Red Blood Count 4.46x10^6/uL (3.50-5.40) 4.35x10^6/uL (3.50-5.40) Hemoglobin 14.6g/dL (12.0-15.5) 14.2g/dL (12.0-15.5) Hematocrit 42.6% (36.0-47.0) 40.9% (36.0-47.0) Mean Corpuscular Volume 96fL (79-100) 94fL (79-100) Mean Corpuscular Hemoglobin 33pg (25-35) 33pg (25-35) Mean Corpuscular Hemoglobin Concent 34g/dL (31-37) 35g/dL (31-37) Red Cell Distribution Width 13.4% (11.5-14.5) 13.4% (11.5-14.5) Platelet Count 237x10^3/uL (140-400) 228x10^3/uL (140-400) Neutrophils (%) (Auto) 67% (31-73) 69% (31-73) Lymphocytes (%) (Auto) 22% (24-48) 22% (24-48) Monocytes (%) (Auto) 8% (0-9) 7% (0-9) Eosinophils (%) (Auto) 2% (0-3) 2% (0-3) Basophils (%) (Auto) 1% (0-3) 0% (0-3) Neutrophils # (Auto) 8.0x10^3uL (1.8-7.7) 7.3x10^3uL (1.8-7.7) Lymphocytes # (Auto) 2.6x10^3/uL (1.0-4.8) 2.3x10^3/uL (1.0-4.8) Monocytes # (Auto) 0.9x10^3/uL (0.0-1.1) 0.7x10^3/uL (0.0-1.1) Eosinophils # (Auto) 0.2x10^3/uL (0.0-0.7) 0.2x10^3/uL (0.0-0.7) Basophils # (Auto) 0.1x10^3/uL (0.0-0.2) 0.0x10^3/uL (0.0-0.2) Prothrombin Time 12.9SEC (11.7-14.0) Prothromb Time International Ratio 1.0 (0.8-1.1) Activated Partial Thromboplast Time 30SEC (24-38) Sodium Level 142mmol/L (136-145) 141mmol/L (136-145) Potassium Level 3.6mmol/L (3.5-5.1) 3.2mmol/L (3.5-5.1) Chloride Level 104mmol/L (98-107) 105mmol/L (98-107) Carbon Dioxide Level 29mmol/L (21-32) 29mmol/L (21-32) Anion Gap 9 (6-14) 7 (6-14) Blood Urea Nitrogen 15mg/dL (7-20) 16mg/dL (7-20) Creatinine 0.6mg/dL (0.6-1.0) 0.6mg/dL (0.6-1.0) Estimated GFR (Cockcroft-Gault) 98.3 98.3 BUN/Creatinine Ratio 25 (6-20) 27 (6-20) Glucose Level 88mg/dL (70-99) 110mg/dL (70-99) Calcium Level 9.1mg/dL (8.5-10.1) 8.7mg/dL (8.5-10.1) Total Bilirubin 0.3mg/dL (0.2-1.0) 0.5mg/dL (0.2-1.0) Aspartate Amino Transf (AST/SGOT) 17U/L (15-37) 16U/L (15-37) Alanine Aminotransferase (ALT/SGPT) 26U/L (14-59) 22U/L (14-59) Alkaline Phosphatase 45U/L (46-116) 45U/L (46-116) Troponin I Quantitative < 0.017ng/mL (0.000-0.055) EC-Foq-T-Type Natriuretic Peptide 31pg/mL (0-124) Total Protein 6.9g/dL (6.4-8.2) 6.6g/dL (6.4-8.2) Albumin 3.6g/dL (3.4-5.0) 3.2g/dL (3.4-5.0) Albumin/Globulin Ratio 1.1 (1.0-1.7) 0.9 (1.0-1.7) Thyroid Stimulating Hormone (TSH) 0.799uIU/mL (0.358-3.74) Triglycerides Level 115mg/dL (0-150) Cholesterol Level 149mg/dL (0-200) LDL Cholesterol, Calculated 85mg/dL (0-100) VLDL Cholesterol, Calculated 23mg/dL (0-40) Non-HDL Cholesterol Calculated 108mg/dL (0-129) HDL Cholesterol 41mg/dL (40-60) Cholesterol/HDL Ratio 3.6 Laboratory Tests Test 06/29/16 17:45 06/30/16 04:10 06/30/16 04:30 White Blood Count 11.8x10^3/uL (4.0-11.0) 10.6x10^3/uL (4.0-11.0) Red Blood Count 4.46x10^6/uL (3.50-5.40) 4.35x10^6/uL (3.50-5.40) Hemoglobin 14.6g/dL (12.0-15.5) 14.2g/dL (12.0-15.5) Hematocrit 42.6% (36.0-47.0) 40.9% (36.0-47.0) Mean Corpuscular Volume 96fL (79-100) 94fL (79-100) Mean Corpuscular Hemoglobin 33pg (25-35) 33pg (25-35) Mean Corpuscular Hemoglobin Concent 34g/dL (31-37) 35g/dL (31-37) Red Cell Distribution Width 13.4% (11.5-14.5) 13.4% (11.5-14.5) Platelet Count 237x10^3/uL (140-400) 228x10^3/uL (140-400) Neutrophils (%) (Auto) 67% (31-73) 69% (31-73) Lymphocytes (%) (Auto) 22% (24-48) 22% (24-48) Monocytes (%) (Auto) 8% (0-9) 7% (0-9) Eosinophils (%) (Auto) 2% (0-3) 2% (0-3) Basophils (%) (Auto) 1% (0-3) 0% (0-3) Neutrophils # (Auto) 8.0x10^3uL (1.8-7.7) 7.3x10^3uL (1.8-7.7) Lymphocytes # (Auto) 2.6x10^3/uL (1.0-4.8) 2.3x10^3/uL (1.0-4.8) Monocytes # (Auto) 0.9x10^3/uL (0.0-1.1) 0.7x10^3/uL (0.0-1.1) Eosinophils # (Auto) 0.2x10^3/uL (0.0-0.7) 0.2x10^3/uL (0.0-0.7) Basophils # (Auto) 0.1x10^3/uL (0.0-0.2) 0.0x10^3/uL (0.0-0.2) Prothrombin Time 12.9SEC (11.7-14.0) Prothromb Time International Ratio 1.0 (0.8-1.1) Activated Partial Thromboplast Time 30SEC (24-38) Sodium Level 142mmol/L (136-145) 141mmol/L (136-145) Potassium Level 3.6mmol/L (3.5-5.1) 3.2mmol/L (3.5-5.1) Chloride Level 104mmol/L (98-107) 105mmol/L (98-107) Carbon Dioxide Level 29mmol/L (21-32) 29mmol/L (21-32) Anion Gap 9 (6-14) 7 (6-14) Blood Urea Nitrogen 15mg/dL (7-20) 16mg/dL (7-20) Creatinine 0.6mg/dL (0.6-1.0) 0.6mg/dL (0.6-1.0) Estimated GFR (Cockcroft-Gault) 98.3 98.3 BUN/Creatinine Ratio 25 (6-20) 27 (6-20) Glucose Level 88mg/dL (70-99) 110mg/dL (70-99) Calcium Level 9.1mg/dL (8.5-10.1) 8.7mg/dL (8.5-10.1) Total Bilirubin 0.3mg/dL (0.2-1.0) 0.5mg/dL (0.2-1.0) Aspartate Amino Transf (AST/SGOT) 17U/L (15-37) 16U/L (15-37) Alanine Aminotransferase (ALT/SGPT) 26U/L (14-59) 22U/L (14-59) Alkaline Phosphatase 45U/L (46-116) 45U/L (46-116) Troponin I Quantitative < 0.017ng/mL (0.000-0.055) OD-Gqx-Y-Type Natriuretic Peptide 31pg/mL (0-124) Total Protein 6.9g/dL (6.4-8.2) 6.6g/dL (6.4-8.2) Albumin 3.6g/dL (3.4-5.0) 3.2g/dL (3.4-5.0) Albumin/Globulin Ratio 1.1 (1.0-1.7) 0.9 (1.0-1.7) Thyroid Stimulating Hormone (TSH) 0.799uIU/mL (0.358-3.74) Triglycerides Level 115mg/dL (0-150) Cholesterol Level 149mg/dL (0-200) LDL Cholesterol, Calculated 85mg/dL (0-100) VLDL Cholesterol, Calculated 23mg/dL (0-40) Non-HDL Cholesterol Calculated 108mg/dL (0-129) HDL Cholesterol 41mg/dL (40-60) Cholesterol/HDL Ratio 3.6 NELL NORRIS MD Jun 30, 2016 16:10
--- NOTE | 2016-06-30 16:26 | RAD ---
CTA of the head and neck with and without contrast Indications: Stroke. Abnormal carotid duplex examination. Technique: Noncontrast head CT was performed. Noncontrast axial localizer was performed. After IV infusion of 75 cc of Omnipaque 300, helical CT scanning of the neck and head was performed. Multiplanar 2-D MIP reconstructions were generated. Using a MIP algorithm, 3-D reconstructed arteriogram of the head and neck was generated. Comparison: No previous CT available. Head CT: No acute intracranial hemorrhage or midline shift or mass effect or hydrocephalus is seen. Skin changes are seen involving the cervical hemispheres bilaterally responding to the FLAIR image on the MRI study of the brain dated June 20, 2016. This is most prominent within the head of the caudate nucleus and the anterior limb of the internal capsule and the anterior basal ganglion the left side. No intracranial contrast enhancing lesion or mass lesion is seen. Neck CTA: Calcified and soft plaque formation of the left carotid bulb is seen. There is occlusion of the left internal carotid artery at the origin from the carotid bulb all the way to the distal intracranial bifurcation. There is segmental calcified and soft plaque formation of the proximal right ICA starting at the origin of the right carotid bulb which measures 11 mm in length. There is a 90% stenosis within this segment. Distal to this segment, the right ICA is patent. There is soft plaque formation within the right carotid bulb. The vertebral arteries are codominant in size. Both vertebral arteries are patent throughout their length through the neck and to the anastomosis with the basilar artery. The left subclavian artery and the brachiocephalic artery and the right subclavian artery and the common carotid arteries are patent. Calcified and soft plaque formation is seen within the aortic arch. Head CTA: The basilar artery is patent and the posterior cerebral arteries are patent. The right internal carotid artery is patent. There is some calcified plaque within the cavernous and supraclinoid portions without tight stenosis of the right ICA. The left internal carotid artery is occluded all the way to the bifurcation. There is reconstitution of the left anterior cerebral artery and left middle cerebral artery via the anterior communicating artery. The right anterior cerebral artery and right middle cerebral artery are patent. No aneurysm is seen involving the [place]. No AVM is evident. The dural venous sinuses enhance normally. 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 Tight 90% stenosis of the proximal right ICA within the neck just distal to the carotid bulb.
[2016-06-30 19:30] VITALS: BP 123/51
[2016-06-30 23:35] VITALS: BP 120/48
[2016-07-01] VITALS (14 sets, daily range): BP systolic 90–127; BP diastolic 37–59
[2016-07-01 06:02] LABS: CALCIUM 8.8 mg/dL (8.5-10.1); CREATININE 0.9 mg/dL (0.6-1.0); GFR 61.5; POTASSIUM 3.4 mmol/L (3.5-5.1)
[2016-07-01] MEDS: LEVOFLOXACIN 500 MG TABLET PO SCH (06:19)
[2016-07-01] MEDS: LEVOTHYROXINE 75 MCG TABLET PO SCH (06:19)
[2016-07-01] MEDS: LACTOBACILLUS ACIDOPH & BULGAR 1 TABLET. PO SCH (08:57)
[2016-07-01] MEDS: CLOPIDOGREL BISULFATE 75 MG TABLET PO SCH (08:57)
[2016-07-01] MEDS: CETIRIZINE HCL 10 MG TABLET. PO SCH (08:57)
[2016-07-01] MEDS: HYDROCHLOROTHIAZIDE 25 MG TABLET PO SCH (08:57)
[2016-07-01] MEDS: ASPIRIN 325 MG TABLET PO SCH (08:57)
[2016-07-01] MEDS: MELOXICAM 7.5 MG TABLET PO SCH (08:58)
[2016-07-01] MEDS: [UNRECOGNIZED DRUG - OTHER] PO SCH (08:58)
[2016-07-01] MEDS ORDERED: ERGOCALCIFEROL (VITAMIN D2) 50,000 UNIT CAPSULE. PO SCH (09:00)
[2016-07-01] MEDS ORDERED: POTASSIUM CHLORIDE 20 MEQ TABLET.ER. PO ONE (09:30)
[2016-07-01] MEDS ORDERED: IV RINGERS,LACTATED 1000ML 1,000 ML IV SCH (09:35)
[2016-07-01] MEDS ORDERED: MORPHINE SULFATE 2 MG/ML DISP.SYRIN. IV PRN ×2 (09:45→18:15)
[2016-07-01] MEDS ORDERED: HYDROmorphone 2 MG/ML VIAL IV PRN (09:45)
[2016-07-01] MEDS ORDERED: PROCHLORPERAZINE 10 MG/2 ML VIAL. IV PRN (09:45)
[2016-07-01] MEDS ORDERED: fentaNYL PF VIAL 100 MCG/2 ML VIAL IV PRN ×2 (09:45)
[2016-07-01] MEDS ORDERED: LIDOCAINE 1% 1 ML SYRINGE. ID PRN (09:45)
--- NOTE | 2016-07-01 10:01 | PDOC ---
PROGRESS NOTES Chief Complaint Chief Complaint cc: neuro symptoms A/P Acute/subacute multiple infarcts in bilateral hemispheres, suspected embolic etiology. Occlusion of the left ICA from its origin at the carotid bulb all way to the distal intracranial bifurcation. Tight 90% stenosis of the proximal right ICA within the neck just distal to the carotid bulb. Plan CEA planning today Work up pending, ECHO Vascular surgery, neurology following. Telemetry PT/OT labs reviewed Vitals Vitals Vital Signs Date Time Temp Pulse Resp B/P Pulse Ox O2 Delivery O2 Flow Rate FiO2 07/01/16 08:00 Room Air 07/01/16 07:00 96.8 71 18 94/54 93 96.8 Physical Exam General: Alert, Oriented X3, Cooperative Heart: Normal S1, Normal S2 Lungs: Clear, Wheezing Extremities: Other (rue ST 4/5) Labs LABS Laboratory Tests Test 07/01/16 05:05 Sodium Level 142mmol/L (136-145) Potassium Level 3.4mmol/L (3.5-5.1) Chloride Level 106mmol/L (98-107) Carbon Dioxide Level 30mmol/L (21-32) Anion Gap 6 (6-14) Blood Urea Nitrogen 18mg/dL (7-20) Creatinine 0.9mg/dL (0.6-1.0) Estimated GFR (Cockcroft-Gault) 61.5 Glucose Level 110mg/dL (70-99) Calcium Level 8.8mg/dL (8.5-10.1) Assessment and Plan Assessmemt and Plan Problems Medical Problems: (1) Acute CVA (cerebrovascular accident) Status: Acute Problems: Comment Review of Relevant I have reviewed the following items page (where applicable) has been applied. Labs Laboratory Tests Test 06/29/16 17:45 06/30/16 04:10 06/30/16 04:30 07/01/16 05:05 White Blood Count 11.8x10^3/uL (4.0-11.0) 10.6x10^3/uL (4.0-11.0) Red Blood Count 4.46x10^6/uL (3.50-5.40) 4.35x10^6/uL (3.50-5.40) Hemoglobin 14.6g/dL (12.0-15.5) 14.2g/dL (12.0-15.5) Hematocrit 42.6% (36.0-47.0) 40.9% (36.0-47.0) Mean Corpuscular Volume 96fL (79-100) 94fL (79-100) Mean Corpuscular Hemoglobin 33pg (25-35) 33pg (25-35) Mean Corpuscular Hemoglobin Concent 34g/dL (31-37) 35g/dL (31-37) Red Cell Distribution Width 13.4% (11.5-14.5) 13.4% (11.5-14.5) Platelet Count 237x10^3/uL (140-400) 228x10^3/uL (140-400) Neutrophils (%) (Auto) 67% (31-73) 69% (31-73) Lymphocytes (%) (Auto) 22% (24-48) 22% (24-48) Monocytes (%) (Auto) 8% (0-9) 7% (0-9) Eosinophils (%) (Auto) 2% (0-3) 2% (0-3) Basophils (%) (Auto) 1% (0-3) 0% (0-3) Neutrophils # (Auto) 8.0x10^3uL (1.8-7.7) 7.3x10^3uL (1.8-7.7) Lymphocytes # (Auto) 2.6x10^3/uL (1.0-4.8) 2.3x10^3/uL (1.0-4.8) Monocytes # (Auto) 0.9x10^3/uL (0.0-1.1) 0.7x10^3/uL (0.0-1.1) Eosinophils # (Auto) 0.2x10^3/uL (0.0-0.7) 0.2x10^3/uL (0.0-0.7) Basophils # (Auto) 0.1x10^3/uL (0.0-0.2) 0.0x10^3/uL (0.0-0.2) Prothrombin Time 12.9SEC (11.7-14.0) Prothromb Time International Ratio 1.0 (0.8-1.1) Activated Partial Thromboplast Time 30SEC (24-38) Sodium Level 142mmol/L (136-145) 141mmol/L (136-145) 142mmol/L (136-145) Potassium Level 3.6mmol/L (3.5-5.1) 3.2mmol/L (3.5-5.1) 3.4mmol/L (3.5-5.1) Chloride Level 104mmol/L (98-107) 105mmol/L (98-107) 106mmol/L (98-107) Carbon Dioxide Level 29mmol/L (21-32) 29mmol/L (21-32) 30mmol/L (21-32) Anion Gap 9 (6-14) 7 (6-14) 6 (6-14) Blood Urea Nitrogen 15mg/dL (7-20) 16mg/dL (7-20) 18mg/dL (7-20) Creatinine 0.6mg/dL (0.6-1.0) 0.6mg/dL (0.6-1.0) 0.9mg/dL (0.6-1.0) Estimated GFR (Cockcroft-Gault) 98.3 98.3 61.5 BUN/Creatinine Ratio 25 (6-20) 27 (6-20) Glucose Level 88mg/dL (70-99) 110mg/dL (70-99) 110mg/dL (70-99) Calcium Level 9.1mg/dL (8.5-10.1) 8.7mg/dL (8.5-10.1) 8.8mg/dL (8.5-10.1) Total Bilirubin 0.3mg/dL (0.2-1.0) 0.5mg/dL (0.2-1.0) Aspartate Amino Transf (AST/SGOT) 17U/L (15-37) 16U/L (15-37) Alanine Aminotransferase (ALT/SGPT) 26U/L (14-59) 22U/L (14-59) Alkaline Phosphatase 45U/L (46-116) 45U/L (46-116) Troponin I Quantitative < 0.017ng/mL (0.000-0.055) TO-Qqc-F-Type Natriuretic Peptide 31pg/mL (0-124) Total Protein 6.9g/dL (6.4-8.2) 6.6g/dL (6.4-8.2) Albumin 3.6g/dL (3.4-5.0) 3.2g/dL (3.4-5.0) Albumin/Globulin Ratio 1.1 (1.0-1.7) 0.9 (1.0-1.7) Thyroid Stimulating Hormone (TSH) 0.799uIU/mL (0.358-3.74) Triglycerides Level 115mg/dL (0-150) Cholesterol Level 149mg/dL (0-200) LDL Cholesterol, Calculated 85mg/dL (0-100) VLDL Cholesterol, Calculated 23mg/dL (0-40) Non-HDL Cholesterol Calculated 108mg/dL (0-129) HDL Cholesterol 41mg/dL (40-60) Cholesterol/HDL Ratio 3.6 Laboratory Tests Test 07/01/16 05:05 Sodium Level 142mmol/L (136-145) Potassium Level 3.4mmol/L (3.5-5.1) Chloride Level 106mmol/L (98-107) Carbon Dioxide Level 30mmol/L (21-32) Anion Gap 6 (6-14) Blood Urea Nitrogen 18mg/dL (7-20) Creatinine 0.9mg/dL (0.6-1.0) Estimated GFR (Cockcroft-Gault) 61.5 Glucose Level 110mg/dL (70-99) Calcium Level 8.8mg/dL (8.5-10.1) Medications Current Medications Aspirin (Ecotrin) 325 mg 1X ONCE PO Last administered on 06/29/16 18:04; Start 06/29/16 at 18:00; Stop 06/29/16 at 18:01; Status DC Ondansetron HCl (Zofran) 4 mg PRN Q8HRS PRN IV NAUSEA/VOMITING; Start 06/29/16 at 18:00; Stop 06/30/16 at 17:59; Status DC Fentanyl Citrate (Fentanyl 2ml Vial) 50 mcg PRN Q2HR PRN IV PAIN; Start at 18:00; Stop 06/30/16 at 17:59; Status DC Cetirizine HCl (Zyrtec) 10 mg DAILY PO Last administered on 07/01/16 08:57; Start 06/30/16 at 09:00 Hydrochlorothiazide (Hydrodiuril) 25 mg DAILY PO Last administered on 07/01/16 08:57; Start 06/30/16 at 09:00 Levothyroxine Sodium (Synthroid) 75 mcg DAILY07 PO Last administered on 06:19; Start 06/30/16 at 07:00 Non-Formulary Medication 1.5 mg DAILY PO Last administered on 07/01/16 08:58; Start 06/30/16 at 09:00 Meloxicam (Mobic) 15 mg DAILY PO Last administered on 07/01/16 08:58; Start at 09:00; Stop 07/01/16 at 09:05; Status DC Prednisone (Prednisone) 60 mg 1X ONCE PO Last administered on 06/30/16 02:19 ; Start 06/29/16 at 23:30; Stop 06/29/16 at 23:31; Status DC Levofloxacin (Levaquin) 500 mg DAILY06 PO Last administered on 07/01/16 06:19; Start 06/30/16 at 11:30; Stop 07/04/16 at 11:29 Ergocalciferol (Vitamin D2) 50,000 unit WEEKLY PO Last administered on 08:58; Start 07/01/16 at 09:00 Lactobacillus Acidophilus (Bacid, Wendy-Bid) 1 tab DAILY PO Last administered on 07/01/16 08:57; Start 07/01/16 at 09:00 Aspirin ([place] Aspirin) 325 mg DAILYWBKFT PO Last administered on 07/01/16 08: 57; Start 06/30/16 at 12:00 Clopidogrel Bisulfate (Plavix) 75 mg DAILYWBKFT PO Last administered on 08:57; Start 07/01/16 at 08:00 Iohexol (Omnipaque 350 Mg/ml) 100 ml 1X ONCE IV Last administered on 13:30; Start 06/30/16 at 13:30; Stop 06/30/16 at 13:39; Status DC Iohexol (Omnipaque 350 Mg/ml) 100 ml 1X ONCE IV Last administered on 13:30; Start 06/30/16 at 13:30; Stop 06/30/16 at 13:39; Status DC Info (Do NOT chart on this entry -- for MONITORING) 1 each PRN DAILY PRN MC SEE COMMENTS; Start 06/30/16 at 13:45; Stop 07/02/16 at 13:44 Potassium Chloride 40 meq 40 meq 1X ONCE PO ; Start 07/01/16 at 09:30; Stop 07/01 at 09:31; Status DC Cefazolin Sodium/ Dextrose (Ancef 2gm Premix) 50 ml @ 100 mls/hr 1X ONCE IV ; Start 07/01/16 at 18:00; Stop 07/01/16 at 18:29 Fentanyl Citrate (Fentanyl 2ml Vial) 25 mcg PRN Q5MIN PRN IV MILD PAIN; Start 07/01/16 at 09:45; Stop 07/02/16 at 09:44 Fentanyl Citrate (Fentanyl 2ml Vial) 50 mcg PRN Q5MIN PRN IV MODERATE PAIN; Start 07/01/16 at 09:45; Stop 07/02/16 at 09:44 Morphine Sulfate 1 mg 1 mg PRN Q10MIN PRN IV SEVERE PAIN; Start 07/01/16 at 09: 45; Stop 07/02/16 at 09:44 Lactated Ringer's (Iv Lactated Ringers) 1,000 ml @ 30 mls/hr Q24H IV ; Start at 09:35; Stop 07/01/16 at 21:34 Lidocaine HCl 2 ml PRN 1X PRN ID PRIOR TO IV START; Start 07/01/16 at 09:45; Stop 07/02/16 at 09:44 Hydromorphone HCl (Dilaudid) 0.5 mg PRN Q10MIN PRN IV SEV PAIN, Second choice; Start 07/01/16 at 09:45; Stop 07/02/16 at 09:44 Prochlorperazine Edisylate (Compazine) 5 mg PACU PRN PRN IV NAUSEA, MRX1; Start 07/01/16 at 09:45; Stop 07/02/16 at 09:44 Active Scripts Active Reported Zyrtec (Cetirizine Hcl) 10 Mg Tablet 10 Mg PO DAILY Estropipate 1.5 Mg Tablet 1.5 Mg PO DAILY Hydrochlorothiazide Tablet (Hydrochlorothiazide) 25 Mg Tablet 1 Tab PO DAILY Synthroid (Levothyroxine Sodium) 75 Mcg Tablet 1 Tab PO DAILY Meloxicam 15 Mg Tablet 1 Tab PO DAILY Vitals/I & O Vital Sign - Last 24 Hours 06/30/16 06/30/16 06/30/16 06/30/16 11:00 15:00 19:30 20:00 Temp 97.5 97.2 97.5 97.5 97.2 97.5 Pulse 84 79 80 Resp 20 20 18 B/P 112/58 122/57 123/51 Pulse Ox 96 96 93 O2 Delivery Room Air Room Air Room Air Room Air 06/30/16 07/01/16 07/01/16 07/01/16 23:35 03:35 07:00 08:00 Temp 97.5 97.5 96.8 97.5 97.5 96.8 Pulse 70 62 71 Resp 18 B/P 120/48 118/50 94/54 Pulse Ox 96 94 93 O2 Delivery Room Air Room Air Room Air Room Air Intake and Output 06/30/16 06/30/16 07/01/16 15:00 23:00 07:00 Intake Total 50 ml Balance 50 ml DEANNA BONILLA MD July 01, 2016 10:01
--- NOTE | 2016-07-01 10:17 | PDOC ---
PROGRESS NOTES Subjective Subjective "I am ok with having surgery today." Objective Objective Vascular Surgery follow up: O: Has just finished breakfast. No specific complaints. Denies headache. Seems distant and cannot remember previous conversation with Dr. Wu about possible need for surgery on neck artery. Not much conversation but no slurred speech or aphasia noted. CV: RRR. Vital signs stable. Pulm: Bilat clear. Unlabored. Abd: Soft. + sounds. CTA completed yesterday does not indicate bilat completely occluded carotid arteries. She has 90% of the right ICA. Dr. Wu notified. Assessment/Plan: 1. Symptomatic right REJI with documented 90% stenosis per CTA of neck arteries. Pt has been made NPO for right CEA to be done this afternoon around [address] Wu. Preop orders completed. Continue ASA and Plavix. 2. Would recommend making sure UA is sent. I have spoke with RN about this and the need to get this completed. Pt already on Levaquin. 3. I have spoke with pt's grand daughter, Marleen (INSURANCE ATTORNEY) regarding plan. She will communicate with the rest of the family the current plan. Dr. Wu will rediscuss surgery with the pt prior to proceeding. Vital Signs Date Time Temp Pulse Resp B/P Pulse Ox O2 Delivery O2 Flow Rate FiO2 07/01/16 08:00 Room Air 07/01/16 07:00 96.8 71 18 94/54 93 96.8 Intake and Output 07/01/16 06:59 Intake Total 50 ml Balance 50 ml Intake Oral 50 ml # Voids 2 Assessment Assessment Problems Medical Problems: (1) Acute CVA (cerebrovascular accident) Status: Acute Comment Review of Relevant I have reviewed the following items page (where applicable) has been applied. Labs Laboratory Tests Test 06/29/16 17:45 06/30/16 04:10 06/30/16 04:30 07/01/16 05:05 White Blood Count 11.8x10^3/uL (4.0-11.0) 10.6x10^3/uL (4.0-11.0) Red Blood Count 4.46x10^6/uL (3.50-5.40) 4.35x10^6/uL (3.50-5.40) Hemoglobin 14.6g/dL (12.0-15.5) 14.2g/dL (12.0-15.5) Hematocrit 42.6% (36.0-47.0) 40.9% (36.0-47.0) Mean Corpuscular Volume 96fL (79-100) 94fL (79-100) Mean Corpuscular Hemoglobin 33pg (25-35) 33pg (25-35) Mean Corpuscular Hemoglobin Concent 34g/dL (31-37) 35g/dL (31-37) Red Cell Distribution Width 13.4% (11.5-14.5) 13.4% (11.5-14.5) Platelet Count 237x10^3/uL (140-400) 228x10^3/uL (140-400) Neutrophils (%) (Auto) 67% (31-73) 69% (31-73) Lymphocytes (%) (Auto) 22% (24-48) 22% (24-48) Monocytes (%) (Auto) 8% (0-9) 7% (0-9) Eosinophils (%) (Auto) 2% (0-3) 2% (0-3) Basophils (%) (Auto) 1% (0-3) 0% (0-3) Neutrophils # (Auto) 8.0x10^3uL (1.8-7.7) 7.3x10^3uL (1.8-7.7) Lymphocytes # (Auto) 2.6x10^3/uL (1.0-4.8) 2.3x10^3/uL (1.0-4.8) Monocytes # (Auto) 0.9x10^3/uL (0.0-1.1) 0.7x10^3/uL (0.0-1.1) Eosinophils # (Auto) 0.2x10^3/uL (0.0-0.7) 0.2x10^3/uL (0.0-0.7) Basophils # (Auto) 0.1x10^3/uL (0.0-0.2) 0.0x10^3/uL (0.0-0.2) Prothrombin Time 12.9SEC (11.7-14.0) Prothromb Time International Ratio 1.0 (0.8-1.1) Activated Partial Thromboplast Time 30SEC (24-38) Sodium Level 142mmol/L (136-145) 141mmol/L (136-145) 142mmol/L (136-145) Potassium Level 3.6mmol/L (3.5-5.1) 3.2mmol/L (3.5-5.1) 3.4mmol/L (3.5-5.1) Chloride Level 104mmol/L (98-107) 105mmol/L (98-107) 106mmol/L (98-107) Carbon Dioxide Level 29mmol/L (21-32) 29mmol/L (21-32) 30mmol/L (21-32) Anion Gap 9 (6-14) 7 (6-14) 6 (6-14) Blood Urea Nitrogen 15mg/dL (7-20) 16mg/dL (7-20) 18mg/dL (7-20) Creatinine 0.6mg/dL (0.6-1.0) 0.6mg/dL (0.6-1.0) 0.9mg/dL (0.6-1.0) Estimated GFR (Cockcroft-Gault) 98.3 98.3 61.5 BUN/Creatinine Ratio 25 (6-20) 27 (6-20) Glucose Level 88mg/dL (70-99) 110mg/dL (70-99) 110mg/dL (70-99) Calcium Level 9.1mg/dL (8.5-10.1) 8.7mg/dL (8.5-10.1) 8.8mg/dL (8.5-10.1) Total Bilirubin 0.3mg/dL (0.2-1.0) 0.5mg/dL (0.2-1.0) Aspartate Amino Transf (AST/SGOT) 17U/L (15-37) 16U/L (15-37) Alanine Aminotransferase (ALT/SGPT) 26U/L (14-59) 22U/L (14-59) Alkaline Phosphatase 45U/L (46-116) 45U/L (46-116) Troponin I Quantitative < 0.017ng/mL (0.000-0.055) [id number]-Type Natriuretic Peptide 31pg/mL (0-124) Total Protein 6.9g/dL (6.4-8.2) 6.6g/dL (6.4-8.2) Albumin 3.6g/dL (3.4-5.0) 3.2g/dL (3.4-5.0) Albumin/Globulin Ratio 1.1 (1.0-1.7) 0.9 (1.0-1.7) Thyroid Stimulating Hormone (TSH) 0.799uIU/mL (0.358-3.74) Triglycerides Level 115mg/dL (0-150) Cholesterol Level 149mg/dL (0-200) LDL Cholesterol, Calculated 85mg/dL (0-100) VLDL Cholesterol, Calculated 23mg/dL (0-40) Non-HDL Cholesterol Calculated 108mg/dL (0-129) HDL Cholesterol 41mg/dL (40-60) Cholesterol/HDL Ratio 3.6 Laboratory Tests Test 07/01/16 05:05 Sodium Level 142mmol/L (136-145) Potassium Level 3.4mmol/L (3.5-5.1) Chloride Level 106mmol/L (98-107) Carbon Dioxide Level 30mmol/L (21-32) Anion Gap 6 (6-14) Blood Urea Nitrogen 18mg/dL (7-20) Creatinine 0.9mg/dL (0.6-1.0) Estimated GFR (Cockcroft-Gault) 61.5 Glucose Level 110mg/dL (70-99) Calcium Level 8.8mg/dL (8.5-10.1) Medications Current Medications Aspirin (Ecotrin) 325 mg 1X ONCE PO Last administered on 06/29/16t 18:04; Start 06/29/16 at 18:00; Stop 06/29/16 at 18:01; Status DC Ondansetron HCl (Zofran) 4 mg PRN Q8HRS PRN IV NAUSEA/VOMITING; Start 06/29/16 at 18:00; Stop 06/30/16 at 17:59; Status DC Fentanyl Citrate (Fentanyl 2ml Vial) 50 mcg PRN Q2HR PRN IV PAIN; Start at 18:00; Stop 06/30/16 at 17:59; Status DC Cetirizine HCl (Zyrtec) 10 mg DAILY PO Last administered on 07/01/16 08:57; Start 06/30/16 at 09:00 Hydrochlorothiazide (Hydrodiuril) 25 mg DAILY PO Last administered on 07/01/16 08:57; Start 06/30/16 at 09:00 Levothyroxine Sodium (Synthroid) 75 mcg DAILY07 PO Last administered on 06:19; Start 06/30/16 at 07:00 Non-Formulary Medication 1.5 mg DAILY PO Last administered on 07/01/16 08:58; Start 06/30/16 at 09:00 Meloxicam (Mobic) 15 mg DAILY PO Last administered on 07/01/16 08:58; Start at 09:00; Stop 07/01/16 at 09:05; Status DC Prednisone (Prednisone) 60 mg 1X ONCE PO Last administered on 06/30/16 02:19 ; Start 06/29/16 at 23:30; Stop 06/29/16 at 23:31; Status DC Levofloxacin (Levaquin) 500 mg DAILY06 PO Last administered on 07/01/16 06:19; Start 06/30/16 at 11:30; Stop 07/04/16 at 11:29 Ergocalciferol (Vitamin D2) 50,000 unit WEEKLY PO Last administered on 08:58; Start 07/01/16 at 09:00 Lactobacillus Acidophilus (Bacid, Wendy-Bid) 1 tab DAILY PO Last administered on 07/01/16 08:57; Start 07/01/16 at 09:00 Aspirin ([place] Aspirin) 325 mg DAILYWBKFT PO Last administered on 07/01/16 08: 57; Start 06/30/16 at 12:00 Clopidogrel Bisulfate (Plavix) 75 mg DAILYWBKFT PO Last administered on 08:57; Start 07/01/16 at 08:00 Iohexol (Omnipaque 350 Mg/ml) 100 ml 1X ONCE IV Last administered on 13:30; Start 06/30/16 at 13:30; Stop 06/30/16 at 13:39; Status DC Iohexol (Omnipaque 350 Mg/ml) 100 ml 1X ONCE IV Last administered on 4/30/ 17at 13:30; Start 06/30/16 at 13:30; Stop 06/30/16 at 13:39; Status DC Info (Do NOT chart on this entry -- for MONITORING) 1 each PRN DAILY PRN MC SEE COMMENTS; Start 06/30/16 at 13:45; Stop 07/02/16 at 13:44 Potassium Chloride 40 meq 40 meq 1X ONCE PO ; Start 07/01/16 at 09:30; Stop 07/01 at 09:31; Status DC Cefazolin Sodium/ Dextrose (Ancef 2gm Premix) 50 ml @ 100 mls/hr 1X ONCE IV ; Start 07/01/16 at 18:00; Stop 07/01/16 at 18:29 Fentanyl Citrate (Fentanyl 2ml Vial) 25 mcg PRN Q5MIN PRN IV MILD PAIN; Start 07/01/16 at 09:45; Stop 07/02/16 at 09:44 Fentanyl Citrate (Fentanyl 2ml Vial) 50 mcg PRN Q5MIN PRN IV MODERATE PAIN; Start 07/01/16 at 09:45; Stop 07/02/16 at 09:44 Morphine Sulfate 1 mg 1 mg PRN Q10MIN PRN IV SEVERE PAIN; Start 07/01/16 at 09: 45; Stop 07/02/16 at 09:44 Lactated Ringer's (Iv Lactated Ringers) 1,000 ml @ 30 mls/hr Q24H IV ; Start at 09:35; Stop 07/01/16 at 21:34 Lidocaine HCl 2 ml PRN 1X PRN ID PRIOR TO IV START; Start 07/01/16 at 09:45; Stop 07/02/16 at 09:44 Hydromorphone HCl (Dilaudid) 0.5 mg PRN Q10MIN PRN IV SEV PAIN, Second choice; Start 07/01/16 at 09:45; Stop 07/02/16 at 09:44 Prochlorperazine Edisylate (Compazine) 5 mg PACU PRN PRN IV NAUSEA, MRX1; Start 07/01/16 at 09:45; Stop 07/02/16 at 09:44 Active Scripts Active Reported Zyrtec (Cetirizine Hcl) 10 Mg Tablet 10 Mg PO DAILY Estropipate 1.5 Mg Tablet 1.5 Mg PO DAILY Hydrochlorothiazide Tablet (Hydrochlorothiazide) 25 Mg Tablet 1 Tab PO DAILY Synthroid (Levothyroxine Sodium) 75 Mcg Tablet 1 Tab PO DAILY Meloxicam 15 Mg Tablet 1 Tab PO DAILY Vitals/I & O Vital Sign - Last 24 Hours 06/30/16 06/30/16 06/30/16 06/30/16 11:00 15:00 19:30 20:00 Temp 97.5 97.2 97.5 97.5 97.2 97.5 Pulse 84 79 80 Resp B/P 112/58 122/57 123/51 Pulse Ox 96 96 93 O2 Delivery Room Air Room Air Room Air Room Air 06/30/16 07/01/16 07/01/16 07/01/16 23:35 03:35 07:00 08:00 Temp 97.5 97.5 96.8 97.5 97.5 96.8 Pulse 70 62 71 Resp B/P 120/48 118/50 94/54 Pulse Ox 96 94 93 O2 Delivery Room Air Room Air Room Air Room Air Intake and Output 06/30/16 06/30/16 07/01/16 14:59 22:59 06:59 Intake Total 50 ml Balance 50 ml ANGELIA WU APRN July 01, 2016 10:17
--- NOTE | 2016-07-01 11:07 | PDOC ---
PROGRESS NOTES Assessment Problems Medical Problems: (1) Acute CVA (cerebrovascular accident) Status: Acute Acute/subacute multiple infarcts in bilateral hemispheres, embolic etiology. Occlusion of the left ICA from its origin at the carotid bulb all way to the distal intracranial bifurcation. Tight 90% stenosis of the proximal right ICA within the neck just distal to the carotid bulb. Plan Plavix 75 mg q am. ASA 325 mg daily. Agree with vascular surgery plans for right carotid endarterectomy Await echocardiogram Subjective No complaints Objective Vital Signs Date Time Temp Pulse Resp B/P Pulse Ox O2 Delivery O2 Flow Rate FiO2 07/01/16 08:00 Room Air 07/01/16 07:00 96.8 71 18 94/54 93 96.8 Intake and Output 07/01/16 07:00 Intake Total 50 ml Balance 50 ml Intake Oral 50 ml # Voids 2 PHYSICAL EXAM Alert. Oriented to time, place and person. PERRL. EOMI. CN: no focal findings. Muscle tone: normal. Muscle strength: 4/5 on right, 5/5 on left DTR: 2+ Plantar reflex: flexor Gait: not examined in bed. Sensory exam: no abnormal findings. No cerebellar signs elicited. Review of Relevant I have reviewed the following items page (where applicable) has been applied. Labs Laboratory Tests Test 06/29/16 17:45 06/30/16 04:10 06/30/16 04:30 07/01/16 05:05 White Blood Count 11.8x10^3/uL (4.0-11.0) 10.6x10^3/uL (4.0-11.0) Red Blood Count 4.46x10^6/uL (3.50-5.40) 4.35x10^6/uL (3.50-5.40) Hemoglobin 14.6g/dL (12.0-15.5) 14.2g/dL (12.0-15.5) Hematocrit 42.6% (36.0-47.0) 40.9% (36.0-47.0) Mean Corpuscular Volume 96fL (79-100) 94fL (79-100) Mean Corpuscular Hemoglobin 33pg (25-35) 33pg (25-35) Mean Corpuscular Hemoglobin Concent 34g/dL (31-37) 35g/dL (31-37) Red Cell Distribution Width 13.4% (11.5-14.5) 13.4% (11.5-14.5) Platelet Count 237x10^3/uL (140-400) 228x10^3/uL (140-400) Neutrophils (%) (Auto) 67% (31-73) 69% (31-73) Lymphocytes (%) (Auto) 22% (24-48) 22% (24-48) Monocytes (%) (Auto) 8% (0-9) 7% (0-9) Eosinophils (%) (Auto) 2% (0-3) 2% (0-3) Basophils (%) (Auto) 1% (0-3) 0% (0-3) Neutrophils # (Auto) 8.0x10^3uL (1.8-7.7) 7.3x10^3uL (1.8-7.7) Lymphocytes # (Auto) 2.6x10^3/uL (1.0-4.8) 2.3x10^3/uL (1.0-4.8) Monocytes # (Auto) 0.9x10^3/uL (0.0-1.1) 0.7x10^3/uL (0.0-1.1) Eosinophils # (Auto) 0.2x10^3/uL (0.0-0.7) 0.2x10^3/uL (0.0-0.7) Basophils # (Auto) 0.1x10^3/uL (0.0-0.2) 0.0x10^3/uL (0.0-0.2) Prothrombin Time 12.9SEC (11.7-14.0) Prothromb Time International Ratio 1.0 (0.8-1.1) Activated Partial Thromboplast Time 30SEC (24-38) Sodium Level 142mmol/L (136-145) 141mmol/L (136-145) 142mmol/L (136-145) Potassium Level 3.6mmol/L (3.5-5.1) 3.2mmol/L (3.5-5.1) 3.4mmol/L (3.5-5.1) Chloride Level 104mmol/L (98-107) 105mmol/L (98-107) 106mmol/L (98-107) Carbon Dioxide Level 29mmol/L (21-32) 29mmol/L (21-32) 30mmol/L (21-32) Anion Gap 9 (6-14) 7 (6-14) 6 (6-14) Blood Urea Nitrogen 15mg/dL (7-20) 16mg/dL (7-20) 18mg/dL (7-20) Creatinine 0.6mg/dL (0.6-1.0) 0.6mg/dL (0.6-1.0) 0.9mg/dL (0.6-1.0) Estimated GFR (Cockcroft-Gault) 98.3 98.3 61.5 BUN/Creatinine Ratio 25 (6-20) 27 (6-20) Glucose Level 88mg/dL (70-99) 110mg/dL (70-99) 110mg/dL (70-99) Calcium Level 9.1mg/dL (8.5-10.1) 8.7mg/dL (8.5-10.1) 8.8mg/dL (8.5-10.1) Total Bilirubin 0.3mg/dL (0.2-1.0) 0.5mg/dL (0.2-1.0) Aspartate Amino Transf (AST/SGOT) 17U/L (15-37) 16U/L (15-37) Alanine Aminotransferase (ALT/SGPT) 26U/L (14-59) 22U/L (14-59) Alkaline Phosphatase 45U/L (46-116) 45U/L (46-116) Troponin I Quantitative < 0.017ng/mL (0.000-0.055) VV-Wln-A-Type Natriuretic Peptide 31pg/mL (0-124) Total Protein 6.9g/dL (6.4-8.2) 6.6g/dL (6.4-8.2) Albumin 3.6g/dL (3.4-5.0) 3.2g/dL (3.4-5.0) Albumin/Globulin Ratio 1.1 (1.0-1.7) 0.9 (1.0-1.7) Thyroid Stimulating Hormone (TSH) 0.799uIU/mL (0.358-3.74) Triglycerides Level 115mg/dL (0-150) Cholesterol Level 149mg/dL (0-200) LDL Cholesterol, Calculated 85mg/dL (0-100) VLDL Cholesterol, Calculated 23mg/dL (0-40) Non-HDL Cholesterol Calculated 108mg/dL (0-129) HDL Cholesterol 41mg/dL (40-60) Cholesterol/HDL Ratio 3.6 Laboratory Tests Test 07/01/16 05:05 Sodium Level 142mmol/L (136-145) Potassium Level 3.4mmol/L (3.5-5.1) Chloride Level 106mmol/L (98-107) Carbon Dioxide Level 30mmol/L (21-32) Anion Gap 6 (6-14) Blood Urea Nitrogen 18mg/dL (7-20) Creatinine 0.9mg/dL (0.6-1.0) Estimated GFR (Cockcroft-Gault) 61.5 Glucose Level 110mg/dL (70-99) Calcium Level 8.8mg/dL (8.5-10.1) Medications Current Medications Aspirin (Ecotrin) 325 mg 1X ONCE PO Last administered on 06/29/16 18:04; Start 06/29/16 at 18:00; Stop 06/29/16 at 18:01; Status DC Ondansetron HCl (Zofran) 4 mg PRN Q8HRS PRN IV NAUSEA/VOMITING; Start 06/29/16 at 18:00; Stop 06/30/16 at 17:59; Status DC Fentanyl Citrate (Fentanyl 2ml Vial) 50 mcg PRN Q2HR PRN IV PAIN; Start at 18:00; Stop 06/30/16 at 17:59; Status DC Cetirizine HCl (Zyrtec) 10 mg DAILY PO Last administered on 07/01/16 08:57; Start 06/30/16 at 09:00 Hydrochlorothiazide (Hydrodiuril) 25 mg DAILY PO Last administered on 07/01/16 08:57; Start 06/30/16 at 09:00 Levothyroxine Sodium (Synthroid) 75 mcg DAILY07 PO Last administered on 06:19; Start 06/30/16 at 07:00 Non-Formulary Medication 1.5 mg DAILY PO Last administered on 07/01/16 08:58; Start 06/30/16 at 09:00 Meloxicam (Mobic) 15 mg DAILY PO Last administered on 07/01/16 08:58; Start at 09:00; Stop 07/01/16 at 09:05; Status DC Prednisone (Prednisone) 60 mg 1X ONCE PO Last administered on 06/30/16 02:19 ; Start 06/29/16 at 23:30; Stop 06/29/16 at 23:31; Status DC Levofloxacin (Levaquin) 500 mg DAILY06 PO Last administered on 07/01/16 06:19; Start 06/30/16 at 11:30; Stop 07/04/16 at 11:29 Ergocalciferol (Vitamin D2) 50,000 unit WEEKLY PO Last administered on 08:58; Start 07/01/16 at 09:00 Lactobacillus Acidophilus (Bacid, Wendy-Bid) 1 tab DAILY PO Last administered on 07/01/16 08:57; Start 07/01/16 at 09:00 Aspirin (Galen Aspirin) 325 mg DAILYWBKFT PO Last administered on 07/01/16 08: 57; Start 06/30/16 at 12:00 Clopidogrel Bisulfate (Plavix) 75 mg DAILYWBKFT PO Last administered on 08:57; Start 07/01/16 at 08:00 Iohexol (Omnipaque 350 Mg/ml) 100 ml 1X ONCE IV Last administered on 13:30; Start 06/30/16 at 13:30; Stop 06/30/16 at 13:39; Status DC Iohexol (Omnipaque 350 Mg/ml) 100 ml 1X ONCE IV Last administered on 13:30; Start 06/30/16 at 13:30; Stop 06/30/16 at 13:39; Status DC Info (Do NOT chart on this entry -- for MONITORING) 1 each PRN DAILY PRN MC SEE COMMENTS; Start 06/30/16 at 13:45; Stop 07/02/16 at 13:44 Potassium Chloride 40 meq 40 meq 1X ONCE PO Last administered on 07/01/16 09: 30; Start 07/01/16 at 09:30; Stop 07/01/16 at 09:31; Status DC Cefazolin Sodium/ Dextrose (Ancef 2gm Premix) 50 ml @ 100 mls/hr 1X ONCE IV ; Start 07/01/16 at 18:00; Stop 07/01/16 at 18:29 Fentanyl Citrate (Fentanyl 2ml Vial) 25 mcg PRN Q5MIN PRN IV MILD PAIN; Start 07/01/16 at 09:45; Stop 07/02/16 at 09:44 Fentanyl Citrate (Fentanyl 2ml Vial) 50 mcg PRN Q5MIN PRN IV MODERATE PAIN; Start 07/01/16 at 09:45; Stop 07/02/16 at 09:44 Morphine Sulfate 1 mg 1 mg PRN Q10MIN PRN IV SEVERE PAIN; Start 07/01/16 at 09: 45; Stop 07/02/16 at 09:44 Lactated Ringer's (Iv Lactated Ringers) 1,000 ml @ 30 mls/hr Q24H IV ; Start at 09:35; Stop 07/01/16 at 21:34 Lidocaine HCl 2 ml PRN 1X PRN ID PRIOR TO IV START; Start 07/01/16 at 09:45; Stop 07/02/16 at 09:44 Hydromorphone HCl (Dilaudid) 0.5 mg PRN Q10MIN PRN IV SEV PAIN, Second choice; Start 07/01/16 at 09:45; Stop 07/02/16 at 09:44 Prochlorperazine Edisylate (Compazine) 5 mg PACU PRN PRN IV NAUSEA, MRX1; Start 07/01/16 at 09:45; Stop 07/02/16 at 09:44 Active Scripts Active Reported Zyrtec (Cetirizine Hcl) 10 Mg Tablet 10 Mg PO DAILY Estropipate 1.5 Mg Tablet 1.5 Mg PO DAILY Hydrochlorothiazide Tablet (Hydrochlorothiazide) 25 Mg Tablet 1 Tab PO DAILY Synthroid (Levothyroxine Sodium) 75 Mcg Tablet 1 Tab PO DAILY Meloxicam 15 Mg Tablet 1 Tab PO DAILY Vitals/I & O Vital Sign - Last 24 Hours 06/30/16 06/30/16 06/30/16 06/30/16 15:00 19:30 20:00 23:35 Temp 97.2 97.5 97.5 97.2 97.5 97.5 Pulse 79 80 70 Resp 20 18 18 B/P 122/57 123/51 120/48 Pulse Ox 96 93 96 O2 Delivery Room Air Room Air Room Air Room Air 07/01/16 07/01/16 07/01/16 03:35 07:00 08:00 Temp 97.5 96.8 97.5 96.8 Pulse 62 71 Resp 18 18 B/P 118/50 94/54 Pulse Ox 94 93 O2 Delivery Room Air Room Air Room Air Intake and Output 06/30/16 06/30/16 07/01/16 15:00 23:00 07:00 Intake Total 50 ml Balance [address]: No acute intracranial hemorrhage or midline shift or mass effect or hydrocephalus is seen. Skin changes are seen involving the cervical hemispheres bilaterally responding to the FLAIR image on the MRI study of the brain dated June 20, 2016. This is most prominent within the head of the caudate nucleus and the anterior limb of the internal capsule and the anterior basal ganglion the left side. No intracranial contrast enhancing lesion or mass lesion is seen. Neck CTA: Calcified and soft plaque formation of the left carotid bulb is seen. There is occlusion of the left internal carotid artery at the origin from the carotid bulb all the way to the distal intracranial bifurcation. There is segmental calcified and soft plaque formation of the proximal right ICA starting at the origin of the right carotid bulb which measures 11 mm in length. There is a 90% stenosis within this segment. Distal to this segment, the right ICA is patent. There is soft plaque formation within the right carotid bulb. The vertebral arteries are codominant in size. Both vertebral arteries are patent throughout their length through the neck and to the anastomosis with the basilar artery. The left subclavian artery and the brachiocephalic artery and the right subclavian artery and the common carotid arteries are patent. Calcified and soft plaque formation is seen within the aortic arch. Head CTA: The basilar artery is patent and the posterior cerebral arteries are patent. The right internal carotid artery is patent. There is some calcified plaque within the cavernous and supraclinoid portions without tight stenosis of the right ICA. The left internal carotid artery is occluded all the way to the bifurcation. There is reconstitution of the left anterior cerebral artery and left middle cerebral artery via the anterior communicating artery. The right anterior cerebral artery and right middle cerebral artery are patent. No aneurysm is seen involving the seminole of [place]. No AVM is evident. The dural venous sinuses enhance normally. 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 Tight 90% stenosis of the proximal right ICA within the neck just distal to the carotid bulb. Brain MRI 06/28: There are foci of restricted diffusion within the right occipital lobe cortex, right caudate nucleus and putamen, and scattered throughout the bilateral frontal lobe cortex and subcortical white matter and the right parietal periventricular white matter, consistent with foci of acute or subacute infarction. There is no evidence of hemorrhage. There is no mass effect or midline shift. There are extensive scattered focal areas of T2/FLAIR hyperintensity throughout the cerebral white matter, likely due to chronic small vessel disease. There is cerebral volume loss with compensatory enlargement of the ventricles. The orbits are unremarkable. The paranasal sinuses mastoid air cells are unremarkable. There is a tiny focus of encephalomalacia within the left cerebellum. There is an absent flow void within the distal left vertebral artery, likely due to occlusion. IMPRESSION 1. Multiple foci of acute or subacute infarction within the bilateral cerebral cortex and subcortical white matter and right parietal periventricular white matter and right caudate nucleus and putamen. No associated hemorrhage is seen. 2. Absent flow void within the distal left internal carotid artery likely due to occlusion. This can be better assessed with a head MRA or head CTA. 3. Multiple scattered areas of signal change throughout the cerebral white matter, likely due to chronic small vessel disease. 4. Cerebral atrophy. Echo pending THI LLOYD MD July 01, 2016 11:07
--- NOTE | 2016-07-01 14:50 | CONS ---
DATE OF CONSULTATION: 06/30/2016 REASON FOR CONSULTATION: Bilateral carotid disease, symptomatic. HISTORY OF PRESENT ILLNESS: This is a 71-year-old female who came in after having an episode where she had some clear weakness in the right arm, right leg. Presently, this is improved somewhat, but she is eating and still having a little bit of trouble holding her fork. Her evaluation, she has had an MRI that shows bilateral multiple infarcts on both hemispheres, it is mostly old. A carotid Doppler suggests that complete occlusion of the left internal carotid artery and possibly a complete occlusion of the right internal carotid artery, but there may have been a trickle of blood flow through that vessel. There was antegrade flow in both vertebral arteries bilaterally. MRI was ordered, but machine is broken, so it was not done. PAST MEDICAL HISTORY: Include a history of hypertension and asthma. SOCIAL HISTORY: Former smoker, but not now. ALLERGIES: No known allergies. Apparently, she may not have been on aspirin prior to admission. REVIEW OF SYSTEMS: Negative for any other arterial interventions. Negative for coronary artery disease or claudication. PHYSICAL EXAMINATION: GENERAL: Pleasant female, in no acute distress. CARDIOVASCULAR: Right carotids 2+, 2+ radial pulses. Heart rate is regular. LUNGS: Nonlabored respirations. NEUROLOGIC: She appears to be a little weak on the left side. IMPRESSION: Symptomatic bilateral carotid disease, perhaps complete occlusion of the left internal carotid artery, possible ____ occlusion of the right, but may be 99% stenosis. PLAN: Add Plavix to the aspirin daily. Recommend a CT angio and I have ordered that to be done tomorrow. If that is not conclusive at showing either patency or complete occlusion of the right internal carotid artery, she may need an urgent carotid arteriogram. Should the right internal carotid artery be patent, then I would recommend a right carotid endarterectomy. I discussed the nature of that procedure to be done under cervical block anesthetic with the risk of bleeding, infection and stroke, nerve injury with the patient and her family. We will await the results of the CT angio. Thanks for allowing me to see her and to participate in her care. We will follow. MARITZA HUTCHISON MD DR: TITO/mi JOB#: [id number] / [id number]
[2016-07-01] MEDS ORDERED: SURGICEL FIBRILLAR 1X2 EACH. ONE (15:02)
[2016-07-01] MEDS ORDERED: LIDOCAINE 1% 20 ML VIAL. ONE ×2 (15:03)
[2016-07-01] MEDS ORDERED: PROTAMINE 50 MG/5 ML VIAL. IV ONE (15:03)
[2016-07-01] MEDS ORDERED: HEPARIN SODIUM 5,000 UNIT in IV RINGERS,LACTATED 500ML 500 ML IRR ONE (15:06)
[2016-07-01] MEDS ORDERED: LIDOCAINE 2% 100 MG/5 ML SYRINGE. ONE (15:43)
[2016-07-01] MEDS ORDERED: PROPOFOL 20 ML IV ONE (15:43)
--- NOTE | 2016-07-01 16:01 | CARD ---
APPROVED REPORT EXAM: Two-dimensional and M-mode echocardiogram with Doppler and color Doppler. Other Information Quality : Good INDICATION CVA/TIA Echo Enhancing Agent Agent/Amount Used: Agitated Saline 16mL 2D DIMENSIONS RVDd2.5 (2.9-3.5cm)Left Atrium(2D)3.5 (1.6-4.0cm) IVSd0.8 (0.7-1.1cm)Aortic Root(2D)2.6 (2.0-3.7cm) LVDd3.9 (3.9-5.9cm)LVOT Diameter1.9 (1.8-2.4cm) PWd0.9 (0.7-1.1cm)LVDs2.1 (2.5-4.0cm) FS (%) 45.3 %SV51.3 ml LVEF(%)60.0 (>50%) Aortic Valve AoV Peak Garo.108.9cm/sAoV VTI24.6cm AO Peak GR.4.7mmHgLVOT Peak Garo.101.7cm/s AO Mean GR.3mmHgAVA (VMAX)2.68cm2 CORINE (VTI)2.60cm2 Mitral Valve MV E Ijcmbvnu73.3cm/sMV DECEL GFYT812co MV A Ojgelzjb577.8cm/sE/A Ratio0.6 Tricuspid Valve TR P. Tzfxkiwg163as/sRAP TGRIYDVU6xhZz TR Peak Gr.60nwXvXZJS41keVd Pulmonary Vein S1 [place]04.8cm/sD2 Yjeuqkvy38.5cm/s LEFT VENTRICLE The left ventricle is normal size. There is normal left ventricular wall thickness. The left ventricu lar systolic function is normal and the ejection fraction is within normal range. The Ejection Fracti on is 55-60%. There is normal LV segmental wall motion. Transmitral Doppler flow pattern is Grade I-a bnormal relaxation pattern. RIGHT VENTRICLE The right ventricle is normal size. The right ventricular systolic function is normal. ATRIA The left atrium size is normal. The right atrium size is normal. The interatrial septum is intact wit h no evidence for an atrial septal defect or patent foramen ovale as noted on 2-D or Doppler imaging. Injection of agitated saline documented no interatrial shunt. AORTIC VALVE The aortic valve is calcified but opens well. Doppler and Color Flow revealed no significant aortic r egurgitation. There is no significant aortic valvular stenosis. MITRAL VALVE The mitral valve is normal in structure and function. There is no evidence of mitral valve prolapse. There is no mitral valve stenosis. Doppler and Color-flow revealed trace mitral regurgitation. TRICUSPID VALVE The tricuspid valve is normal in structure and function. Doppler and Color Flow revealed trace to mil d tricuspid regurgitation. The PA pressure was estimated at 23 mmHg. There is no tricuspid valve sten osis. PULMONIC VALVE Doppler and Color Flow revealed mild pulmonic valvular regurgitation. There is no pulmonic valvular s tenosis. GREAT VESSELS The aortic root is normal in size. The ascending aorta is normal in size. The IVC is normal in size a nd collapses >50% with inspiration. PERICARDIAL EFFUSION There is no evidence of significant pericardial effusion. Critical Notification Critical Value: No <Conclusion> The left ventricular systolic function is normal and the ejection fraction is within normal range. Th e Ejection Fraction is 55-60%. There is normal LV segmental wall motion. The interatrial septum is intact with no evidence for an atrial septal defect or patent foramen ovale as noted on 2-D or Doppler imaging. Injection of agitated saline documented no interatrial shunt.
[2016-07-01] MEDS ORDERED: MIDAZOLAM HCL/PF 2 MG/2 ML VIAL. ONE (17:47)
[2016-07-01] MEDS: MIDAZOLAM HCL/PF 2 MG/2 ML VIAL. IV PRN ×2 (17:48→17:56)
[2016-07-01] MEDS ORDERED: ROPIVacaine 0.2% IN 0.9%NACL PF 40 MG/20 ML DISP.SYRIN. ONE (17:58)
[2016-07-01] MEDS ORDERED: ONDANSETRON PF 4 MG/2 ML VIAL. IV PRN (18:15)
[2016-07-01] MEDS ORDERED: 0.9 % SODIUM CHLORIDE 10 ML DISP.SYRIN. IV PRN (18:15)
[2016-07-01] MEDS ORDERED: OXYCODONE IR 5 MG TABLET. PO PRN (18:15)
[2016-07-01] MEDS ORDERED: PROPOFOL 50 ML IV ONE (18:34)
[2016-07-01] MEDS ORDERED: HEPARIN for IV BOLUS 10,000 UNIT/10 ML VIAL. ONE (18:45)
[2016-07-01] MEDS ORDERED: LIDOCAINE 1% PF 30 ML VIAL. ONE (18:48)
--- NOTE | 2016-07-01 19:53 | PDOC ---
BRIEF OPERATIVE NOTE Date: July 01, 2016 Pre-Op Diagnosis Darryl Carotid stenosis ~ .905 rt, occluded lt Post-Op Diagnosis same Procedure Performed Rt. CEA, eversion Surgeon Alec Wu Anesthesiologist [place] Anesthesia Type: MAC, Local, Regional Blood Loss 75 Specimens Obtained Plaque Findings ~> 90% stenosis , tolerated cross clamp Complications none MARITZA WU MD July 01, 2016 19:53
[2016-07-01] MEDS: hydrALAZINE 20 MG/ML VIAL. IVP PRN ×2 (19:56→20:00)
[2016-07-01] MEDS ORDERED: LABETALOL 20 MG/4 ML DISP.SYRIN. IVP PRN (20:00)
[2016-07-01] MEDS ORDERED: hydrALAZINE 20 MG/ML VIAL. IVP PRN (20:00)
[2016-07-01] MEDS: IV NORMAL SALINE 1000ML BAG 1,000 ML IV SCH (23:08)
[2016-07-02] VITALS (10 sets, daily range): BP systolic 97–115; BP diastolic 41–55
[2016-07-02] MEDS: IV NORMAL SALINE 1000ML BAG 1,000 ML IV SCH ×2 (04:30→14:30)
[2016-07-02 05:04] LABS: CREATININE 0.5 mg/dL (0.6-1.0); GFR 121.3; POTASSIUM 3.6 mmol/L (3.5-5.1)
[2016-07-02] MEDS: LEVOTHYROXINE 75 MCG TABLET PO SCH (06:36)
[2016-07-02] MEDS: LEVOFLOXACIN 500 MG TABLET PO SCH (06:36)
--- NOTE | 2016-07-02 08:38 | OP ---
DATE OF SURGERY: 07/01/2016 PREOPERATIVE DIAGNOSIS: Critical right carotid stenosis, opposite left internal carotid artery occlusion. POSTOPERATIVE DIAGNOSIS: Critical right carotid stenosis, opposite left internal carotid artery occlusion. PROCEDURE PERFORMED: Right carotid endarterectomy, eversion technique. SURGEON: Maritza Wu M.D. ANESTHETIC: Cervical block ____ 1% lidocaine. INDICATIONS: This is a 71-year-old female who has had multiple strokes bilaterally. Carotid Doppler suggested occlusion of the left internal carotid artery and possibly a trickle of blood flow through the right. CT angio confirmed occlusion of the left carotid artery and about 90% stenosis of the right side, ____ bilaterally. FINDINGS: A 90%-95% stenosis of the right internal carotid artery. She tolerated the cross clamping without neurological change. DESCRIPTION OF PROCEDURE: After the cervical block anesthetic, prepping and draping, lidocaine had to be used to infiltrate the proposed skin incision. The incision was made and lidocaine was used as we got to the deeper layers as well. Eventually, the common carotid artery was identified, dissected out, encircled with umbilical tape and Rumel tourniquet. She was given 6000 units of heparin IV. Dissection was continued cephalad, crossing vessels divided between Hemoclips and silk ties. The bifurcation was infiltrated with lidocaine. The common was clamped and she had no change in her neurological status. She was somewhat sedated during this procedure and restless and moving as well. The external carotid artery vessel loop was encircled and tightened and tacked down. The internal was then dissected out well above the plaque, was soft, free of disease and was clamped. The internal was circumferentially dissected out, transected obliquely off the bifurcation. The common split anterolaterally. The internal split posteromedially with Vargas scissors. An eversion type endarterectomy done at the internal carotid artery, plaque breaking off very cleanly. A few loose intimal fibers were picked off with forceps. Standard endarterectomy done at the common and external carotid arteries and plaque broke off cleanly in both directions there as well. Once the vessels were clean, the internal was reattached to common as a patch angioplasty using a running circumferential 6-0 Prolene stitch. Just prior to complete closure, forward bleeding was checked, back bleeding was checked. Back bleeding was very good. The vessel was irrigated free of blood and air with heparinized saline solution, and closure completed. The internal clamp was raised. Pressure was held across the orifice. The internal and the external carotid artery Vesseloop was released. MARITZA WU MD DR: TITO/mi JOB#: [id number] / [id number]
--- NOTE | 2016-07-02 08:43 | OP ---
DATE OF SURGERY: 07/01/2016 Dr. Wu redictating an operation report. PREOPERATIVE DIAGNOSIS: Critical right carotid stenosis. POSTOPERATIVE DIAGNOSIS: Critical right carotid stenosis, opposite left internal carotid artery occlusion. OPERATION PERFORMED: Right carotid endarterectomy, eversion technique. SURGEON: Toni Wu M.D. ANESTHETIC: Cervical block plus 1% lidocaine. DESCRIPTION OF PROCEDURE: After cervical block anesthetic, prepping and draping, lidocaine was used to infiltrate the skin edges and an incision made, bleeding controlled with cautery. Blunt and sharp dissection was used to identify the common carotid artery dissected out, encircled with umbilical tape and Rumel tourniquet. She was given 6000 units of heparin IV. Dissection was continued cephalad and the bifurcation was ____ after dividing vessels between 3-0 silk ties or Hemoclips. The common was clamped and she had no change in her neurological status. She was little longer sedated during this time and restless but it appeared that she had a normal neurological status, so the external carotid artery Vesseloop was tightened, tacked down and the internal was clamped well above the plaque where it was free of disease. The internal was transected obliquely off the bifurcation, split posteromedially with the Vargas scissors. The common was split anterolaterally. The eversion type endarterectomy done at the internal carotid artery, plaque breaking off cleanly. A few loose intimal fibers were picked off with forceps. Standard endarterectomy done of the external and common carotid arteries and plaque broke off cleanly in both directions there as well. Once the vessels were clean, heparin was irrigated into each, the internal was then reattached to the common as a patch angioplasty using a running circumferential 6-0 Prolene stitch. Just prior to complete closure, forward bleeding was checked, back bleeding was checked, back bleeding is fair. The vessel was irrigated free of blood and air with heparinized saline solution and closure completed. The internal clamp was raised. Pressure was held across the orifice. The internal and the external carotid artery Vesseloop was released and the common carotid clamp released allowing flow initially to the external system. After several heartbeats, flow was allowed into the internal carotid artery. Minimal bleeding along the suture lines. The wound was irrigated with saline solution. Fibrillar Surgicel packed around suture lines. A 7 mm Chan-Anderson drain placed into the wound and brought out through separate stab incision. Incision was then closed with a running 2-0 Vicryl for the platysma, subcuticular 4-0 Vicryl, Mastisol, Steri-Strips, sterile dressings were applied, tolerated the procedure well and left the operating room. Neurologically intact. ESTIMATED BLOOD LOSS: 75 mL. TONI WU MD DR: TITO/mi JOB#: [id number] / [id number]
[2016-07-02] MEDS: [UNRECOGNIZED DRUG - OTHER] PO SCH (08:58)
[2016-07-02] MEDS: LACTOBACILLUS ACIDOPH & BULGAR 1 TABLET. PO SCH (08:58)
[2016-07-02] MEDS: HYDROCHLOROTHIAZIDE 25 MG TABLET PO SCH (08:59)
[2016-07-02] MEDS: CETIRIZINE HCL 10 MG TABLET. PO SCH (08:59)
[2016-07-02] MEDS: ASPIRIN 325 MG TABLET PO SCH (08:59)
[2016-07-02] MEDS: CLOPIDOGREL BISULFATE 75 MG TABLET PO SCH (08:59)
--- NOTE | 2016-07-02 10:15 | PDOC ---
PROGRESS NOTES Subjective Subjective "I am doing ok. I ate breakfast and feeling ok" Objective Objective Vascular Surgery - POD#1 Right CEA O: Sitting up in chair watching TV. No acute distress Neuro: Intact at preop baseline. No apparent deficits. Disposition remains flat but no different from preop. CV: RRR. SBP 90's-100's post op. Pulm: Bilat clear. No SOB Abd: Soft, +bowel sounds Right neck: Dressing removed. No incisional hematoma noted. Incision intact. RUY drain with scant bloody output. Assessment/Plan: 1. 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 Right sided weakness. Continues to have flat affect. PT/OT working with patient. 2. Left ICA complete occlusion. Right ICA 90% stenosis per CTA. POD#1 Right CEA. Doing well with recovery. Continue antiplatelet therapy on ASA + Plavix upon discharge. 3. HTN. Actually, somewhat hypotensive post-op for pt's normal. Continue to monitor today. 4. Tobacco abuse with chronic smoking x 55 years. Absolutely needs smoking cessation upon discharge. 5. Discharge planning. Will speak with pt's grand daughter today. She states her son and [id number] lives with her but they work during the day. May need rehab? 6. Flat affect. Awaiting UA results as specimen just sent this morning. Already on Levaquin. 7. RUY drain removed. 8. Progress activity. Vital Signs Date Time Temp Pulse Resp B/P Pulse Ox O2 Delivery O2 Flow Rate FiO2 07/02/16 07:00 97.9 71 20 98/55 99 Room Air 97.9 07/01/16 19:58 10 Intake and Output 07/02/16 07:00 Intake Total 2162 ml Output Total 385 ml Balance 1777 ml Intake Oral 275 ml IV Total 1887 ml Output Urine Total 300 ml Drainage Total 10 ml Estimated Blood Loss 75 ml Assessment Assessment Problems Medical Problems: (1) Acute CVA (cerebrovascular accident) Status: Acute (2) Carotid stenosis, bilateral Status: Acute Comment Review of Relevant I have reviewed the following items page (where applicable) has been applied. Labs Laboratory Tests Test 07/01/16 05:05 07/02/16 03:05 Sodium Level 142mmol/L (136-145) 139mmol/L (136-145) Potassium Level 3.4mmol/L (3.5-5.1) 3.6mmol/L (3.5-5.1) Chloride Level 106mmol/L (98-107) 105mmol/L (98-107) Carbon Dioxide Level 30mmol/L (21-32) 27mmol/L (21-32) Anion Gap 6 (6-14) 7 (6-14) Blood Urea Nitrogen 18mg/dL (7-20) 17mg/dL (7-20) Creatinine 0.9mg/dL (0.6-1.0) 0.5mg/dL (0.6-1.0) Estimated GFR (Cockcroft-Gault) 61.5 121.3 Glucose Level 110mg/dL (70-99) 77mg/dL (70-99) Calcium Level 8.8mg/dL (8.5-10.1) 8.0mg/dL (8.5-10.1) Laboratory Tests Test 07/02/16 03:05 Sodium Level 139mmol/L (136-145) Potassium Level 3.6mmol/L (3.5-5.1) Chloride Level 105mmol/L (98-107) Carbon Dioxide Level 27mmol/L (21-32) Anion Gap 7 (6-14) Blood Urea Nitrogen 17mg/dL (7-20) Creatinine 0.5mg/dL (0.6-1.0) Estimated GFR (Cockcroft-Gault) 121.3 Glucose Level 77mg/dL (70-99) Calcium Level 8.0mg/dL (8.5-10.1) Medications Current Medications Aspirin (Ecotrin) 325 mg 1X ONCE PO Last administered on 06/29/16t 18:04; Start 06/29/16 at 18:00; Stop 06/29/16 at 18:01; Status DC Ondansetron HCl (Zofran) 4 mg PRN Q8HRS PRN IV NAUSEA/VOMITING; Start 06/29/16 at 18:00; Stop 06/30/16 at 17:59; Status DC Fentanyl Citrate (Fentanyl 2ml Vial) 50 mcg PRN Q2HR PRN IV PAIN; Start at 18:00; Stop 06/30/16 at 17:59; Status DC Cetirizine HCl (Zyrtec) 10 mg DAILY PO Last administered on 07/02/16 08:59; Start 06/30/16 at 09:00 Hydrochlorothiazide (Hydrodiuril) 25 mg DAILY PO Last administered on 07/02/16 08:59; Start 06/30/16 at 09:00 Levothyroxine Sodium (Synthroid) 75 mcg DAILY07 PO Last administered on 06:36; Start 06/30/16 at 07:00 Non-Formulary Medication 1.5 mg DAILY PO Last administered on 07/02/16 08:58; Start 06/30/16 at 09:00 Meloxicam (Mobic) 15 mg DAILY PO Last administered on 07/01/16 08:58; Start at 09:00; Stop 07/01/16 at 09:05; Status DC Prednisone (Prednisone) 60 mg 1X ONCE PO Last administered on 06/30/16 02:19 ; Start 06/29/16 at 23:30; Stop 06/29/16 at 23:31; Status DC Levofloxacin (Levaquin) 500 mg DAILY06 PO Last administered on 07/02/16 06:36; Start 06/30/16 at 11:30; Stop 07/04/16 at 11:29 Ergocalciferol (Vitamin D2) 50,000 unit WEEKLY PO Last administered on 08:58; Start 07/01/16 at 09:00 Lactobacillus Acidophilus (Bacid, Wendy-Bid) 1 tab DAILY PO Last administered on 07/02/16 08:58; Start 07/01/16 at 09:00 Aspirin (Galen Aspirin) 325 mg DAILYWBKFT PO Last administered on 07/02/16 08: 59; Start 06/30/16 at 12:00 Clopidogrel Bisulfate (Plavix) 75 mg DAILYWBKFT PO Last administered on 08:59; Start 07/01/16 at 08:00 Iohexol (Omnipaque 350 Mg/ml) 100 ml 1X ONCE IV Last administered on 13:30; Start 06/30/16 at 13:30; Stop 06/30/16 at 13:39; Status DC Iohexol (Omnipaque 350 Mg/ml) 100 ml 1X ONCE IV Last administered on 13:30; Start 06/30/16 at 13:30; Stop 06/30/16 at 13:39; Status DC Info (Do NOT chart on this entry -- for MONITORING) 1 each PRN DAILY PRN MC SEE COMMENTS; Start 06/30/16 at 13:45; Stop 07/02/16 at 13:44 Potassium Chloride 40 meq 40 meq 1X ONCE PO Last administered on 07/01/16 09: 30; Start 07/01/16 at 09:30; Stop 07/01/16 at 09:31; Status DC Cefazolin Sodium/ Dextrose (Ancef 2gm Premix) 50 ml @ 100 mls/hr 1X ONCE IV Last administered on 07/01/16 18:30; Start 07/01/16 at 18:00; Stop 07/01/16 at 18: 29; Status DC Fentanyl Citrate (Fentanyl 2ml Vial) 25 mcg PRN Q5MIN PRN IV MILD PAIN; Start 07/01/16 at 09:45; Stop 07/02/16 at 09:44; Status DC Fentanyl Citrate (Fentanyl 2ml Vial) 50 mcg PRN Q5MIN PRN IV MODERATE PAIN; Start 07/01/16 at 09:45; Stop 07/02/16 at 09:44; Status DC Morphine Sulfate 1 mg 1 mg PRN Q10MIN PRN IV SEVERE PAIN; Start 07/01/16 at 09: 45; Stop 07/02/16 at 09:44; Status DC Lactated Ringer's (Iv Lactated Ringers) 1,000 ml @ 30 mls/hr Q24H IV ; Start at 09:35; Stop 07/01/16 at 21:34; Status DC Lidocaine HCl 2 ml PRN 1X PRN ID PRIOR TO IV START; Start 07/01/16 at 09:45; Stop 07/02/16 at 09:44; Status DC Hydromorphone HCl (Dilaudid) 0.5 mg PRN Q10MIN PRN IV SEV PAIN, Second choice; Start 07/01/16 at 09:45; Stop 07/02/16 at 09:44; Status DC Prochlorperazine Edisylate (Compazine) 5 mg PACU PRN PRN IV NAUSEA, MRX1; Start 07/01/16 at 09:45; Stop 07/02/16 at 09:44; Status DC Cellulose 1 each STK-MED ONCE .ROUTE Last administered on 07/01/16 19:34; Start 07/01/16 at 15:02; Stop 07/01/16 at 15:03; Status DC Protamine Sulfate 50 mg STK-MED ONCE IV ; Start 07/01/16 at 15:03; Stop 07/01/16 at 15:04; Status DC Lidocaine HCl 20 ml STK-MED ONCE .ROUTE Last administered on 07/01/16 18:53; Start 07/01/16 at 15:03; Stop 07/01/16 at 15:04; Status DC Lidocaine HCl 20 ml 20 ml STK-MED ONCE .ROUTE Last administered on 07/01/16 18: 54; Start 07/01/16 at 15:03; Stop 07/01/16 at 15:04; Status DC Heparin Sodium (Porcine) 5000 unit/Lactated Ringer's 505 ml @ 505 mls/hr 1X PERIOP ONCE IRR Last administered on 07/01/16 18:53; Start 07/01/16 at 15:06; Stop 07/01/16 at 16:05; Status DC Cefazolin Sodium 1 gm/Sodium Chloride 500 ml @ 500 mls/hr 1X PERIOP ONCE IRR Last administered on 07/01/16 18:53; Start 07/01/16 at 15:07; Stop 07/01/16 at 16: 06; Status DC Propofol (Diprivan) 20 ml @ As Directed STK-MED ONCE IV ; Start 07/01/16 at 15:43 ; Stop 07/01/16 at 15:44; Status DC Lidocaine HCl (Lidocaine HCl 2% Abboject) 100 mg STK-MED ONCE .ROUTE ; Start 07/01/16 at 15:43; Stop 07/01/16 at 15:44; Status DC Midazolam HCl (Versed) 2 mg STK-MED ONCE .ROUTE ; Start 07/01/16 at 17:47; Stop 07/01/16 at 17:48; Status DC Ropivacaine 40 mg STK-MED ONCE .ROUTE ; Start 07/01/16 at 17:58; Stop 07/01/16 at 17:59; Status DC Midazolam HCl (Versed) 2 mg 1X PREOP PRN IV ANXIETY Last administered on 17:56; Start 07/01/16 at 18:15 Sodium Chloride 3 ml 3 ml QSHIFT PRN IV AFTER MEDS AND BLOOD DRAWS; Start at 18:15 Sodium Chloride (Iv Sodium Chloride 0.9% 1000ml Bag) 1,000 ml @ 100 mls/hr Q10H IV Last administered on 07/01/16 23:08; Start 07/01/16 at 18:30 Morphine Sulfate 2 mg PRN Q1HR PRN IV PAIN Last administered on 07/01/16 21:41 ; Start 07/01/16 at 18:15 Oxycodone HCl (Roxicodone) 10 mg PRN Q4HRS PRN PO MODERATE PAIN, SEVERE PAIN; Start 07/01/16 at 18:15 Ondansetron HCl 4 mg 4 mg PRN Q6HRS PRN IV NAUESA, 1ST CHOICE; Start 07/01/16 at 18:15 Propofol (Diprivan) 50 ml @ As Directed STK-MED ONCE IV ; Start 07/01/16 at 18:34 ; Stop 07/01/16 at 18:35; Status DC Heparin Sodium (Porcine) (Heparin Sodium) 10,000 unit STK-MED ONCE .ROUTE ; Start 07/01/16 at 18:45; Stop 07/01/16 at 18:46; Status DC Lidocaine HCl 30 ml STK-MED ONCE .ROUTE ; Start 07/01/16 at 18:48; Stop 07/01/16 at 18:49; Status DC Hydralazine HCl (Apresoline) 10 mg PRN Q4HRS PRN IVP ELEVATED BP, SEE COMMENTS ; Start 07/01/16 at 20:00 Labetalol HCl (Normodyne) 10 mg PRN Q2HR PRN IVP HYPERTENSION, SEE COMMENTS; Start 07/01/16 at 20:00 Hydralazine HCl (Apresoline) 5 mg 1X PACU PRN IVP ELEVATED BP, SEE COMMENTS Last administered on 07/01/16 20:00; Start 07/01/16 at 20:00 Active Scripts Active Reported Zyrtec (Cetirizine Hcl) 10 Mg Tablet 10 Mg PO DAILY Estropipate 1.5 Mg Tablet 1.5 Mg PO DAILY Hydrochlorothiazide Tablet (Hydrochlorothiazide) 25 Mg Tablet 1 Tab PO DAILY Synthroid (Levothyroxine Sodium) 75 Mcg Tablet 1 Tab PO DAILY Meloxicam 15 Mg Tablet 1 Tab PO DAILY Vitals/I & O Vital Sign - Last 24 Hours 07/01/16 07/01/16 07/01/16 07/01/16 11:00 15:00 17:20 19:43 Temp 97.7 96.8 97.1 97.8 97.7 96.8 97.1 97.8 Pulse 71 69 67 63 Resp 18 18 20 18 B/P 125/40 127/52 138/49 165/80 Pulse Ox 96 97 97 100 O2 Delivery Room Air Room Air Room Air Simple Mask O2 Flow Rate 10 07/01/16 07/01/16 07/01/16 07/01/16 19:43 19:56 19:58 19:58 Pulse 66 64 Resp 18 B/P 165/60 162/52 Pulse Ox 98 O2 Delivery Mask Room Air Simple Mask O2 Flow Rate 10 10 07/01/16 07/01/16 07/01/16 07/01/16 20:00 20:13 20:28 20:43 Temp 97.3 97.3 Pulse 62 66 64 68 Resp 18 18 B/P 162/52 130/59 93/40 114/45 Pulse Ox 97 96 96 O2 Delivery Room Air Room Air Room Air 07/01/16 07/01/16 07/01/16 07/01/16 20:56 21:00 21:20 21:35 Pulse 68 70 72 Resp 20 B/P 97/41 110/59 90/37 Pulse Ox 98 O2 Delivery Room Air Room Air 07/01/16 07/01/16 07/01/16 07/01/16 21:41 21:41 21:51 22:05 Pulse 70 70 68 Resp 22 B/P 100/44 109/48 114/46 Pulse Ox 98 O2 Delivery Room Air 07/01/16 07/01/16 07/01/16 07/01/16 22:11 22:20 22:35 23:00 Temp 97.7 97.7 Pulse 66 68 70 Resp 20 17 B/P 98/38 106/39 106/49 Pulse Ox 95 O2 Delivery Room Air 07/01/16 07/02/16 07/02/16 07/02/16 23:35 00:35 01:35 02:35 Pulse 70 72 68 68 B/P 104/41 110/41 107/41 115/51 07/02/16 07/02/16 07/02/16 03:04 03:35 07:00 Temp 97.9 97.9 97.9 97.9 Pulse 69 67 71 Resp 17 20 B/P 97/45 108/53 98/55 Pulse Ox 95 99 O2 Delivery Room Air Room Air Intake and Output 07/01/16 07/01/16 07/02/16 15:00 23:00 07:00 Intake Total 1250 ml 912 ml Output Total 75 ml 310 ml Balance 1175 ml 602 ml ANGELIA HUTCHISON APRN July 02, 2016 10:15
[2016-07-02 10:23] LABS: BILIRUBIN,URINE NEGATIVE (NEG); GLUCOSE,URINE NEGATIVE (NEG); NITRITE,URINE NEGATIVE (NEG); PROTEIN,URINE NEGATIVE (NEG-TRACE)
[2016-07-02 10:46] LABS: BACTERIA,URINE 0 /HPF (0-FEW); RBC,URINE 0 /HPF (0-2); SQUAMOUS EPITHELIAL CELL,UR FEW /LPF; WBC,URINE 0 /HPF (0-4)
--- NOTE | 2016-07-02 11:10 | PDOC ---
PROGRESS NOTES Assessment Problems Medical Problems: (1) Acute CVA (cerebrovascular accident) Status: Acute (2) Carotid stenosis, bilateral Status: Acute Acute/subacute multiple infarcts in bilateral hemispheres, embolic etiology. Occlusion of the left ICA from its origin at the carotid bulb all way to the distal intracranial bifurcation. Proximal right ICA stenosis, status-post Right carotid endarterectomy Plan Plavix 75 mg q am. ASA 325 mg daily. Statin I discussed smoking cessation Objective Vital Signs Date Time Temp Pulse Resp B/P Pulse Ox O2 Delivery O2 Flow Rate FiO2 07/02/16 08:00 Room Air 07/02/16 07:00 97.9 71 20 98/55 99 97.9 07/01/16 19:58 10 Intake and Output 07/02/16 07:00 Intake Total 2162 ml Output Total 385 ml Balance 1777 ml Intake Oral 275 ml IV Total 1887 ml Output Urine Total 300 ml Drainage Total 10 ml Estimated Blood Loss 75 ml PHYSICAL EXAM Alert. Oriented to time, place and person. PERRL. EOMI. CN: no focal findings. Muscle tone: normal. Muscle strength: 5-/5 on right, 5/5 on left DTR: 2+ Plantar reflex: flexor Gait: not examined in bed. Sensory exam: no abnormal findings. No cerebellar signs elicited. Review of Relevant I have reviewed the following items page (where applicable) has been applied. Labs Laboratory Tests Test 07/01/16 05:05 07/02/16 03:05 07/02/16 04:30 Sodium Level 142mmol/L (136-145) 139mmol/L (136-145) Potassium Level 3.4mmol/L (3.5-5.1) 3.6mmol/L (3.5-5.1) Chloride Level 106mmol/L (98-107) 105mmol/L (98-107) Carbon Dioxide Level 30mmol/L (21-32) 27mmol/L (21-32) Anion Gap 6 (6-14) 7 (6-14) Blood Urea Nitrogen 18mg/dL (7-20) 17mg/dL (7-20) Creatinine 0.9mg/dL (0.6-1.0) 0.5mg/dL (0.6-1.0) Estimated GFR (Cockcroft-Gault) 61.5 121.3 Glucose Level 110mg/dL (70-99) 77mg/dL (70-99) Calcium Level 8.8mg/dL (8.5-10.1) 8.0mg/dL (8.5-10.1) Urine Collection Type Unknown Urine Color Yellow Urine Clarity Clear Urine pH 7.0 Urine Specific [place] 1.025 Urine Protein Negativemg/dL (NEG-TRACE) Urine Glucose (UA) Negativemg/dL (NEG) Urine Ketones (Stick) Negativemg/dL (NEG) Urine Blood Negative (NEG) Urine Nitrite Negative (NEG) Urine Bilirubin Negative (NEG) Urine Urobilinogen Dipstick 1.0mg/dL (0.2 mg/dL) Urine Leukocyte Esterase Negative (NEG) Urine RBC 0/HPF (0-2) Urine WBC 0/HPF (0-4) Urine Squamous Epithelial Cells Few/LPF Urine Bacteria 0/HPF (0-FEW) Urine Mucus Mod/LPF Laboratory Tests Test 07/02/16 03:05 07/02/16 04:30 Sodium Level 139mmol/L (136-145) Potassium Level 3.6mmol/L (3.5-5.1) Chloride Level 105mmol/L (98-107) Carbon Dioxide Level 27mmol/L (21-32) Anion Gap 7 (6-14) Blood Urea Nitrogen 17mg/dL (7-20) Creatinine 0.5mg/dL (0.6-1.0) Estimated GFR (Cockcroft-Gault) 121.3 Glucose Level 77mg/dL (70-99) Calcium Level 8.0mg/dL (8.5-10.1) Urine Collection Type Unknown Urine Color Yellow Urine Clarity Clear Urine pH 7.0 Urine Specific [place] 1.025 Urine Protein Negativemg/dL (NEG-TRACE) Urine Glucose (UA) Negativemg/dL (NEG) Urine Ketones (Stick) Negativemg/dL (NEG) Urine Blood Negative (NEG) Urine Nitrite Negative (NEG) Urine Bilirubin Negative (NEG) Urine Urobilinogen Dipstick 1.0mg/dL (0.2 mg/dL) Urine Leukocyte Esterase Negative (NEG) Urine RBC 0/HPF (0-2) Urine WBC 0/HPF (0-4) Urine Squamous Epithelial Cells Few/LPF Urine Bacteria 0/HPF (0-FEW) Urine Mucus Mod/LPF Medications Current Medications Aspirin (Ecotrin) 325 mg 1X ONCE PO Last administered on 06/29/16 18:04; Start 06/29/16 at 18:00; Stop 06/29/16 at 18:01; Status DC Ondansetron HCl (Zofran) 4 mg PRN Q8HRS PRN IV NAUSEA/VOMITING; Start 06/29/16 at 18:00; Stop 06/30/16 at 17:59; Status DC Fentanyl Citrate (Fentanyl 2ml Vial) 50 mcg PRN Q2HR PRN IV PAIN; Start at 18:00; Stop 06/30/16 at 17:59; Status DC Cetirizine HCl (Zyrtec) 10 mg DAILY PO Last administered on 07/02/16 08:59; Start 06/30/16 at 09:00 Hydrochlorothiazide (Hydrodiuril) 25 mg DAILY PO Last administered on 07/02/16 08:59; Start 06/30/16 at 09:00 Levothyroxine Sodium (Synthroid) 75 mcg DAILY07 PO Last administered on 06:36; Start 06/30/16 at 07:00 Non-Formulary Medication 1.5 mg DAILY PO Last administered on 07/02/16 08:58; Start 06/30/16 at 09:00 Meloxicam (Mobic) 15 mg DAILY PO Last administered on 07/01/16 08:58; Start at 09:00; Stop 07/01/16 at 09:05; Status DC Prednisone (Prednisone) 60 mg 1X ONCE PO Last administered on 06/30/16 02:19 ; Start 06/29/16 at 23:30; Stop 06/29/16 at 23:31; Status DC Levofloxacin (Levaquin) 500 mg DAILY06 PO Last administered on 07/02/16 06:36; Start 06/30/16 at 11:30; Stop 07/04/16 at 11:29 Ergocalciferol (Vitamin D2) 50,000 unit WEEKLY PO Last administered on 08:58; Start 07/01/16 at 09:00 Lactobacillus Acidophilus (Bacid, Wendy-Bid) 1 tab DAILY PO Last administered on 07/02/16 08:58; Start 07/01/16 at 09:00 Aspirin (Gal[place] Aspirin) 325 mg DAILYWBKFT PO Last administered on 07/02/16 08: 59; Start 06/30/16 at 12:00 Clopidogrel Bisulfate (Plavix) 75 mg DAILYWBKFT PO Last administered on 08:59; Start 07/01/16 at 08:00 Iohexol (Omnipaque 350 Mg/ml) 100 ml 1X ONCE IV Last administered on 13:30; Start 06/30/16 at 13:30; Stop 06/30/16 at 13:39; Status DC Iohexol (Omnipaque 350 Mg/ml) 100 ml 1X ONCE IV Last administered on 13:30; Start 06/30/16 at 13:30; Stop 06/30/16 at 13:39; Status DC Info (Do NOT chart on this entry -- for MONITORING) 1 each PRN DAILY PRN MC SEE COMMENTS; Start 06/30/16 at 13:45; Stop 07/02/16 at 13:44 Potassium Chloride 40 meq 40 meq 1X ONCE PO Last administered on 07/01/16 09: 30; Start 07/01/16 at 09:30; Stop 07/01/16 at 09:31; Status DC Cefazolin Sodium/ Dextrose (Ancef 2gm Premix) 50 ml @ 100 mls/hr 1X ONCE IV Last administered on 07/01/16 18:30; Start 07/01/16 at 18:00; Stop 07/01/16 at 18: 29; Status DC Fentanyl Citrate (Fentanyl 2ml Vial) 25 mcg PRN Q5MIN PRN IV MILD PAIN; Start 07/01/16 at 09:45; Stop 07/02/16 at 09:44; Status DC Fentanyl Citrate (Fentanyl 2ml Vial) 50 mcg PRN Q5MIN PRN IV MODERATE PAIN; Start 07/01/16 at 09:45; Stop 07/02/16 at 09:44; Status DC Morphine Sulfate 1 mg 1 mg PRN Q10MIN PRN IV SEVERE PAIN; Start 07/01/16 at 09: 45; Stop 07/02/16 at 09:44; Status DC Lactated Ringer's (Iv Lactated Ringers) 1,000 ml @ 30 mls/hr Q24H IV ; Start at 09:35; Stop 07/01/16 at 21:34; Status DC Lidocaine HCl 2 ml PRN 1X PRN ID PRIOR TO IV START; Start 07/01/16 at 09:45; Stop 07/02/16 at 09:44; Status DC Hydromorphone HCl (Dilaudid) 0.5 mg PRN Q10MIN PRN IV SEV PAIN, Second choice; Start 07/01/16 at 09:45; Stop 07/02/16 at 09:44; Status DC Prochlorperazine Edisylate (Compazine) 5 mg PACU PRN PRN IV NAUSEA, MRX1; Start 07/01/16 at 09:45; Stop 07/02/16 at 09:44; Status DC Cellulose 1 each STK-MED ONCE .ROUTE Last administered on 07/01/16 19:34; Start 07/01/16 at 15:02; Stop 07/01/16 at 15:03; Status DC Protamine Sulfate 50 mg STK-MED ONCE IV ; Start 07/01/16 at 15:03; Stop 07/01/16 at 15:04; Status DC Lidocaine HCl 20 ml STK-MED ONCE .ROUTE Last administered on 07/01/16 18:53; Start 07/01/16 at 15:03; Stop 07/01/16 at 15:04; Status DC Lidocaine HCl 20 ml 20 ml STK-MED ONCE .ROUTE Last administered on 07/01/16 18: 54; Start 07/01/16 at 15:03; Stop 07/01/16 at 15:04; Status DC Heparin Sodium (Porcine) 5000 unit/Lactated Ringer's 505 ml @ 505 mls/hr 1X PERIOP ONCE IRR Last administered on 07/01/16 18:53; Start 07/01/16 at 15:06; Stop 07/01/16 at 16:05; Status DC Cefazolin Sodium 1 gm/Sodium Chloride 500 ml @ 500 mls/hr 1X PERIOP ONCE IRR Last administered on 07/01/16 18:53; Start 07/01/16 at 15:07; Stop 07/01/16 at 16: 06; Status DC Propofol (Diprivan) 20 ml @ As Directed STK-MED ONCE IV ; Start 07/01/16 at 15:43 ; Stop 07/01/16 at 15:44; Status DC Lidocaine HCl (Lidocaine HCl 2% Abboject) 100 mg STK-MED ONCE .ROUTE ; Start 07/01/16 at 15:43; Stop 07/01/16 at 15:44; Status DC Midazolam HCl (Versed) 2 mg STK-MED ONCE .ROUTE ; Start 07/01/16 at 17:47; Stop 07/01/16 at 17:48; Status DC Ropivacaine 40 mg STK-MED ONCE .ROUTE ; Start 07/01/16 at 17:58; Stop 07/01/16 at 17:59; Status DC Midazolam HCl (Versed) 2 mg 1X PREOP PRN IV ANXIETY Last administered on 17:56; Start 07/01/16 at 18:15 Sodium Chloride 3 ml 3 ml QSHIFT PRN IV AFTER MEDS AND BLOOD DRAWS; Start at 18:15 Sodium Chloride (Iv Sodium Chloride 0.9% 1000ml Bag) 1,000 ml @ 100 mls/hr Q10H IV Last administered on 07/01/16 23:08; Start 07/01/16 at 18:30 Morphine Sulfate 2 mg PRN Q1HR PRN IV PAIN Last administered on 07/01/16 21:41 ; Start 07/01/16 at 18:15; Stop 07/02/16 at 10:01; Status DC Oxycodone HCl (Roxicodone) 10 mg PRN Q4HRS PRN PO MODERATE PAIN, SEVERE PAIN; Start 07/01/16 at 18:15; Stop 07/02/16 at 10:01; Status DC Ondansetron HCl 4 mg 4 mg PRN Q6HRS PRN IV NAUESA, 1ST CHOICE; Start 07/01/16 at 18:15 Propofol (Diprivan) 50 ml @ As Directed STK-MED ONCE IV ; Start 07/01/16 at 18:34 ; Stop 07/01/16 at 18:35; Status DC Heparin Sodium (Porcine) (Heparin Sodium) 10,000 unit STK-MED ONCE .ROUTE ; Start 07/01/16 at 18:45; Stop 07/01/16 at 18:46; Status DC Lidocaine HCl 30 ml STK-MED ONCE .ROUTE ; Start 07/01/16 at 18:48; Stop 07/01/16 at 18:49; Status DC Hydralazine HCl (Apresoline) 10 mg PRN Q4HRS PRN IVP ELEVATED BP, SEE COMMENTS ; Start 07/01/16 at 20:00 Labetalol HCl (Normodyne) 10 mg PRN Q2HR PRN IVP HYPERTENSION, SEE COMMENTS; Start 07/01/16 at 20:00 Hydralazine HCl (Apresoline) 5 mg 1X PACU PRN IVP ELEVATED BP, SEE COMMENTS Last administered on 07/01/16t 20:00; Start 07/01/16 at 20:00 Acetaminophen/ Hydrocodone Bitart (Lortab 5/325) 1 tab PRN Q4HRS PRN PO PAIN; Start 07/02/16 at 10:00 Active Scripts Active Reported Zyrtec (Cetirizine Hcl) 10 Mg Tablet 10 Mg PO DAILY Estropipate 1.5 Mg Tablet 1.5 Mg PO DAILY Hydrochlorothiazide Tablet (Hydrochlorothiazide) 25 Mg Tablet 1 Tab PO DAILY Synthroid (Levothyroxine Sodium) 75 Mcg Tablet 1 Tab PO DAILY Meloxicam 15 Mg Tablet 1 Tab PO DAILY Vitals/I & O Vital Sign - Last 24 Hours 07/01/16 07/01/16 07/01/16 07/01/16 15:00 17:20 19:43 19:43 Temp 96.8 97.1 97.8 96.8 97.1 97.8 Pulse 69 67 63 Resp 18 20 18 B/P 127/52 138/49 165/80 Pulse Ox 97 97 100 O2 Delivery Room Air Room Air Simple Mask Mask O2 Flow Rate 10 10 07/01/16 07/01/16 07/01/16 07/01/16 19:56 19:58 19:58 20:00 Pulse 66 64 62 Resp 18 B/P 165/60 162/52 162/52 Pulse Ox 98 O2 Delivery Room Air Simple Mask O2 Flow Rate 10 07/01/16 07/01/16 07/01/16 07/01/16 20:13 20:28 20:43 20:56 Temp 97.3 97.3 Pulse 66 64 68 68 Resp 18 18 18 20 B/P 130/59 93/40 114/45 97/41 Pulse Ox 97 96 96 98 O2 Delivery Room Air Room Air Room Air Room Air 07/01/16 07/01/16 07/01/16 5/1/17 21:00 21:20 21:35 21:41 Pulse 70 72 Resp 22 B/P 110/59 90/37 Pulse Ox 98 O2 Delivery Room Air Room Air 07/01/16 07/01/16 07/01/16 07/01/16 21:41 21:51 22:05 22:11 Pulse 70 70 68 Resp 20 B/P 100/44 109/48 114/46 07/01/16 07/01/16 07/01/16 07/01/16 22:20 22:35 23:00 23:35 Temp 97.7 97.7 Pulse 66 68 70 70 Resp 17 B/P 98/38 106/39 106/49 104/41 Pulse Ox 95 O2 Delivery Room Air 07/02/16 07/02/16 07/02/16 07/02/16 00:35 01:35 02:35 03:04 Temp 97.9 97.9 Pulse 72 68 68 69 Resp B/P 110/41 107/41 115/51 97/45 Pulse Ox 95 O2 Delivery Room Air 07/02/16 07/02/16 07/02/16 03:35 07:00 08:00 Temp 97.9 97.9 Pulse 67 71 Resp 20 B/P 108/53 98/55 Pulse Ox 99 O2 Delivery Room Air Room Air Intake and Output 07/01/16 07/01/16 07/02/16 15:00 23:00 07:00 Intake Total 1250 ml 912 ml Output Total 75 ml 310 ml Balance 1175 ml 602 ml Images Echocardiogram: LEFT VENTRICLE The left ventricle is normal size. There is normal left ventricular wall thickness. The left ventricular systolic function is normal and the ejection fraction is within normal range. The Ejection Fraction is 55-60%. There is normal LV segmental wall motion. Transmitral Doppler flow pattern is Grade I- abnormal relaxation pattern. RIGHT VENTRICLE The right ventricle is normal size. The right ventricular systolic function is normal. ATRIA The left atrium size is normal. The right atrium size is normal. The interatrial septum is intact with no evidence for an atrial septal defect or patent foramen ovale as noted on 2-D or Doppler imaging. Injection of agitated saline documented no interatrial shunt. AORTIC VALVE The aortic valve is calcified but opens well. Doppler and Color Flow revealed no significant aortic regurgitation. There is no significant aortic valvular stenosis. MITRAL VALVE The mitral valve is normal in structure and function. There is no evidence of mitral valve prolapse. There is no mitral valve stenosis. Doppler and Color- flow revealed trace mitral regurgitation. TRICUSPID VALVE The tricuspid valve is normal in structure and function. Doppler and Color Flow revealed trace to mild tricuspid regurgitation. The PA pressure was estimated at 23 mmHg. There is no tricuspid valve stenosis. PULMONIC VALVE Doppler and Color Flow revealed mild pulmonic valvular regurgitation. There is no pulmonic valvular stenosis. GREAT VESSELS The aortic root is normal in size. The ascending aorta is normal in size. The IVC is normal in size and collapses >50% with inspiration. PERICARDIAL EFFUSION There is no evidence of significant pericardial effusion. Critical Notification Critical Value: No <Conclusion> The left ventricular systolic function is normal and the ejection fraction is within normal range. The Ejection Fraction is 55-60%. There is normal LV segmental wall motion. The interatrial septum is intact with no evidence for an atrial septal defect or patent foramen ovale as noted on 2-D or Doppler imaging. Injection of agitated saline documented no interatrial shunt. THI LLOYD MD July 02, 2016 11:10
--- NOTE | 2016-07-02 13:24 | PDOC ---
PROGRESS NOTES Chief Complaint Chief Complaint cc: neuro symptoms History of Present Illness History of Present Illness Pt was sitting up in chair and doing well. She reports no acute complaints s/p right CEA yesterday. Accompanied by daughter who reports much improvement in pt's mental status and oxygenation. Discussed with nurse probable discharge tomorrow if pt remains stable. Vitals Vitals Vital Signs Date Time Temp Pulse Resp B/P Pulse Ox O2 Delivery O2 Flow Rate FiO2 07/02/16 11:00 97.6 80 19 108/50 97 Room Air 97.6 07/01/16 19:58 10 Physical Exam General: Alert, Oriented X3, Cooperative Heart: Normal S1, Normal S2 Lungs: Clear, Wheezing Abdomen: Normal bowel sounds, Soft, No tenderness Extremities: No clubbing, Other (rue ST 4/5) Skin: No rashes, No significant lesion Labs LABS Laboratory Tests Test 07/02/16 03:05 07/02/16 04:30 Sodium Level 139mmol/L (136-145) Potassium Level 3.6mmol/L (3.5-5.1) Chloride Level 105mmol/L (98-107) Carbon Dioxide Level 27mmol/L (21-32) Anion Gap 7 (6-14) Blood Urea Nitrogen 17mg/dL (7-20) Creatinine 0.5mg/dL (0.6-1.0) Estimated GFR (Cockcroft-Gault) 121.3 Glucose Level 77mg/dL (70-99) Calcium Level 8.0mg/dL (8.5-10.1) Urine Collection Type Unknown Urine Color Yellow Urine Clarity Clear Urine pH 7.0 Urine Specific [place] 1.025 Urine Protein Negativemg/dL (NEG-TRACE) Urine Glucose (UA) Negativemg/dL (NEG) Urine Ketones (Stick) Negativemg/dL (NEG) Urine Blood Negative (NEG) Urine Nitrite Negative (NEG) Urine Bilirubin Negative (NEG) Urine Urobilinogen Dipstick 1.0mg/dL (0.2 mg/dL) Urine Leukocyte Esterase Negative (NEG) Urine RBC 0/HPF (0-2) Urine WBC 0/HPF (0-4) Urine Squamous Epithelial Cells Few/LPF Urine Bacteria 0/HPF (0-FEW) Urine Mucus Mod/LPF Review of Systems Review of Systems Denies chest pain Denies SOA Denies N/V/D Assessment and Plan Assessmemt and Plan Problems Medical Problems: (1) Acute CVA (cerebrovascular accident) Status: Acute (2) Carotid stenosis, bilateral Status: Acute Assessment Acute/subacute multiple infarcts in bilateral hemispheres, embolic etiology. Right sided weakness Left ICA complete occlusion. Right ICA 90% stenosis per CTA. POD#1 Right CEA. HTN. Tobacco abuse RUY drain removed. Plan POD #1 for Right CEA - continue ASA and Plavix Discussed smoking cessation Continue lipitor Await UA results - on Levaquin Continue to monitor HTN - pt on hydralazine and hydrochlorothiazide Consult PT/OT Probable DC tomorrow if stable - discussed with granddaughter support system at home Problems: Comment Review of Relevant I have reviewed the following items page (where applicable) has been applied. Labs Laboratory Tests Test 07/01/16 05:05 07/02/16 03:05 07/02/16 04:30 Sodium Level 142mmol/L (136-145) 139mmol/L (136-145) Potassium Level 3.4mmol/L (3.5-5.1) 3.6mmol/L (3.5-5.1) Chloride Level 106mmol/L (98-107) 105mmol/L (98-107) Carbon Dioxide Level 30mmol/L (21-32) 27mmol/L (21-32) Anion Gap 6 (6-14) 7 (6-14) Blood Urea Nitrogen 18mg/dL (7-20) 17mg/dL (7-20) Creatinine 0.9mg/dL (0.6-1.0) 0.5mg/dL (0.6-1.0) Estimated GFR (Cockcroft-Gault) 61.5 121.3 Glucose Level 110mg/dL (70-99) 77mg/dL (70-99) Calcium Level 8.8mg/dL (8.5-10.1) 8.0mg/dL (8.5-10.1) Urine Collection Type Unknown Urine Color Yellow Urine Clarity Clear Urine pH 7.0 Urine Specific [place] 1.025 Urine Protein Negativemg/dL (NEG-TRACE) Urine Glucose (UA) Negativemg/dL (NEG) Urine Ketones (Stick) Negativemg/dL (NEG) Urine Blood Negative (NEG) Urine Nitrite Negative (NEG) Urine Bilirubin Negative (NEG) Urine Urobilinogen Dipstick 1.0mg/dL (0.2 mg/dL) Urine Leukocyte Esterase Negative (NEG) Urine RBC 0/HPF (0-2) Urine WBC 0/HPF (0-4) Urine Squamous Epithelial Cells Few/LPF Urine Bacteria 0/HPF (0-FEW) Urine Mucus Mod/LPF Laboratory Tests Test 07/02/16 03:05 07/02/16 04:30 Sodium Level 139mmol/L (136-145) Potassium Level 3.6mmol/L (3.5-5.1) Chloride Level 105mmol/L (98-107) Carbon Dioxide Level 27mmol/L (21-32) Anion Gap 7 (6-14) Blood Urea Nitrogen 17mg/dL (7-20) Creatinine 0.5mg/dL (0.6-1.0) Estimated GFR (Cockcroft-Gault) 121.3 Glucose Level 77mg/dL (70-99) Calcium Level 8.0mg/dL (8.5-10.1) Urine Collection Type Unknown Urine Color Yellow Urine Clarity Clear Urine pH 7.0 Urine Specific [place] 1.025 Urine Protein Negativemg/dL (NEG-TRACE) Urine Glucose (UA) Negativemg/dL (NEG) Urine Ketones (Stick) Negativemg/dL (NEG) Urine Blood Negative (NEG) Urine Nitrite Negative (NEG) Urine Bilirubin Negative (NEG) Urine Urobilinogen Dipstick 1.0mg/dL (0.2 mg/dL) Urine Leukocyte Esterase Negative (NEG) Urine RBC 0/HPF (0-2) Urine WBC 0/HPF (0-4) Urine Squamous Epithelial Cells Few/LPF Urine Bacteria 0/HPF (0-FEW) Urine Mucus Mod/LPF Medications Current Medications Aspirin (Ecotrin) 325 mg 1X ONCE PO Last administered on 06/29/16t 18:04; Start 06/29/16 at 18:00; Stop 06/29/16 at 18:01; Status DC Ondansetron HCl (Zofran) 4 mg PRN Q8HRS PRN IV NAUSEA/VOMITING; Start 06/29/16 at 18:00; Stop 06/30/16 at 17:59; Status DC Fentanyl Citrate (Fentanyl 2ml Vial) 50 mcg PRN Q2HR PRN IV PAIN; Start at 18:00; Stop 06/30/16 at 17:59; Status DC Cetirizine HCl (Zyrtec) 10 mg DAILY PO Last administered on 07/02/16 08:59; Start 06/30/16 at 09:00 Hydrochlorothiazide (Hydrodiuril) 25 mg DAILY PO Last administered on 07/02/16 08:59; Start 06/30/16 at 09:00 Levothyroxine Sodium (Synthroid) 75 mcg DAILY07 PO Last administered on 06:36; Start 06/30/16 at 07:00 Non-Formulary Medication 1.5 mg DAILY PO Last administered on 07/02/16 08:58; Start 06/30/16 at 09:00 Meloxicam (Mobic) 15 mg DAILY PO Last administered on 07/01/16 08:58; Start at 09:00; Stop 07/01/16 at 09:05; Status DC Prednisone (Prednisone) 60 mg 1X ONCE PO Last administered on 06/30/16 02:19 ; Start 06/29/16 at 23:30; Stop 06/29/16 at 23:31; Status DC Levofloxacin (Levaquin) 500 mg DAILY06 PO Last administered on 07/02/16 06:36; Start 06/30/16 at 11:30; Stop 07/04/16 at 11:29 Ergocalciferol (Vitamin D2) 50,000 unit WEEKLY PO Last administered on 08:58; Start 07/01/16 at 09:00 Lactobacillus Acidophilus (Bacid, Wendy-Bid) 1 tab DAILY PO Last administered on 07/02/16 08:58; Start 07/01/16 at 09:00 Aspirin (Galen Aspirin) 325 mg DAILYWBKFT PO Last administered on 07/02/16 08: 59; Start 06/30/16 at 12:00 Clopidogrel Bisulfate (Plavix) 75 mg DAILYWBKFT PO Last administered on 08:59; Start 07/01/16 at 08:00 Iohexol (Omnipaque 350 Mg/ml) 100 ml 1X ONCE IV Last administered on 13:30; Start 06/30/16 at 13:30; Stop 06/30/16 at 13:39; Status DC Iohexol (Omnipaque 350 Mg/ml) 100 ml 1X ONCE IV Last administered on 13:30; Start 06/30/16 at 13:30; Stop 06/30/16 at 13:39; Status DC Info (Do NOT chart on this entry -- for MONITORING) 1 each PRN DAILY PRN MC SEE COMMENTS; Start 06/30/16 at 13:45; Stop 07/02/16 at 13:44 Potassium Chloride 40 meq 40 meq 1X ONCE PO Last administered on 07/01/16 09: 30; Start 07/01/16 at 09:30; Stop 07/01/16 at 09:31; Status DC Cefazolin Sodium/ Dextrose (Ancef 2gm Premix) 50 ml @ 100 mls/hr 1X ONCE IV Last administered on 07/01/16 18:30; Start 07/01/16 at 18:00; Stop 07/01/16 at 18: 29; Status DC Fentanyl Citrate (Fentanyl 2ml Vial) 25 mcg PRN Q5MIN PRN IV MILD PAIN; Start 07/01/16 at 09:45; Stop 07/02/16 at 09:44; Status DC Fentanyl Citrate (Fentanyl 2ml Vial) 50 mcg PRN Q5MIN PRN IV MODERATE PAIN; Start 07/01/16 at 09:45; Stop 07/02/16 at 09:44; Status DC Morphine Sulfate 1 mg 1 mg PRN Q10MIN PRN IV SEVERE PAIN; Start 07/01/16 at 09: 45; Stop 07/02/16 at 09:44; Status DC Lactated Ringer's (Iv Lactated Ringers) 1,000 ml @ 30 mls/hr Q24H IV ; Start at 09:35; Stop 07/01/16 at 21:34; Status DC Lidocaine HCl 2 ml PRN 1X PRN ID PRIOR TO IV START; Start 07/01/16 at 09:45; Stop 07/02/16 at 09:44; Status DC Hydromorphone HCl (Dilaudid) 0.5 mg PRN Q10MIN PRN IV SEV PAIN, Second choice; Start 07/01/16 at 09:45; Stop 07/02/16 at 09:44; Status DC Prochlorperazine Edisylate (Compazine) 5 mg PACU PRN PRN IV NAUSEA, MRX1; Start 07/01/16 at 09:45; Stop 07/02/16 at 09:44; Status DC Cellulose 1 each STK-MED ONCE .ROUTE Last administered on 07/01/16 19:34; Start 07/01/16 at 15:02; Stop 07/01/16 at 15:03; Status DC Protamine Sulfate 50 mg STK-MED ONCE IV ; Start 07/01/16 at 15:03; Stop 07/01/16 at 15:04; Status DC Lidocaine HCl 20 ml STK-MED ONCE .ROUTE Last administered on 07/01/16 18:53; Start 07/01/16 at 15:03; Stop 07/01/16 at 15:04; Status DC Lidocaine HCl 20 ml 20 ml STK-MED ONCE .ROUTE Last administered on 07/01/16 18: 54; Start 07/01/16 at 15:03; Stop 07/01/16 at 15:04; Status DC Heparin Sodium (Porcine) 5000 unit/Lactated Ringer's 505 ml @ 505 mls/hr 1X PERIOP ONCE IRR Last administered on 07/01/16 18:53; Start 07/01/16 at 15:06; Stop 07/01/16 at 16:05; Status DC Cefazolin Sodium 1 gm/Sodium Chloride 500 ml @ 500 mls/hr 1X PERIOP ONCE IRR Last administered on 07/01/16 18:53; Start 07/01/16 at 15:07; Stop 07/01/16 at 16: 06; Status DC Propofol (Diprivan) 20 ml @ As Directed STK-MED ONCE IV ; Start 07/01/16 at 15:43 ; Stop 07/01/16 at 15:44; Status DC Lidocaine HCl (Lidocaine HCl 2% Abboject) 100 mg STK-MED ONCE .ROUTE ; Start 07/01/16 at 15:43; Stop 07/01/16 at 15:44; Status DC Midazolam HCl (Versed) 2 mg STK-MED ONCE .ROUTE ; Start 07/01/16 at 17:47; Stop 07/01/16 at 17:48; Status DC Ropivacaine 40 mg STK-MED ONCE .ROUTE ; Start 07/01/16 at 17:58; Stop 07/01/16 at 17:59; Status DC Midazolam HCl (Versed) 2 mg 1X PREOP PRN IV ANXIETY Last administered on 17:56; Start 07/01/16 at 18:15 Sodium Chloride 3 ml 3 ml QSHIFT PRN IV AFTER MEDS AND BLOOD DRAWS; Start at 18:15 Sodium Chloride (Iv Sodium Chloride 0.9% 1000ml Bag) 1,000 ml @ 100 mls/hr Q10H IV Last administered on 07/01/16 23:08; Start 07/01/16 at 18:30 Morphine Sulfate 2 mg PRN Q1HR PRN IV PAIN Last administered on 07/01/16 21:41 ; Start 07/01/16 at 18:15; Stop 07/02/16 at 10:01; Status DC Oxycodone HCl (Roxicodone) 10 mg PRN Q4HRS PRN PO MODERATE PAIN, SEVERE PAIN; Start 07/01/16 at 18:15; Stop 07/02/16 at 10:01; Status DC Ondansetron HCl 4 mg 4 mg PRN Q6HRS PRN IV NAUESA, 1ST CHOICE; Start 07/01/16 at 18:15 Propofol (Diprivan) 50 ml @ As Directed STK-MED ONCE IV ; Start 07/01/16 at 18:34 ; Stop 07/01/16 at 18:35; Status DC Heparin Sodium (Porcine) (Heparin Sodium) 10,000 unit STK-MED ONCE .ROUTE ; Start 07/01/16 at 18:45; Stop 07/01/16 at 18:46; Status DC Lidocaine HCl 30 ml STK-MED ONCE .ROUTE ; Start 07/01/16 at 18:48; Stop 07/01/16 at 18:49; Status DC Hydralazine HCl (Apresoline) 10 mg PRN Q4HRS PRN IVP ELEVATED BP, SEE COMMENTS ; Start 07/01/16 at 20:00 Labetalol HCl (Normodyne) 10 mg PRN Q2HR PRN IVP HYPERTENSION, SEE COMMENTS; Start 07/01/16 at 20:00 Hydralazine HCl (Apresoline) 5 mg 1X PACU PRN IVP ELEVATED BP, SEE COMMENTS Last administered on 07/01/16 20:00; Start 07/01/16 at 20:00 Acetaminophen/ Hydrocodone Bitart (Lortab 5/325) 1 tab PRN Q4HRS PRN PO PAIN; Start 07/02/16 at 10:00 Atorvastatin Calcium (Lipitor) 10 mg QHS PO ; Start 07/02/16 at 21:00 Active Scripts Active Reported Zyrtec (Cetirizine Hcl) 10 Mg Tablet 10 Mg PO DAILY Estropipate 1.5 Mg Tablet 1.5 Mg PO DAILY Hydrochlorothiazide Tablet (Hydrochlorothiazide) 25 Mg Tablet 1 Tab PO DAILY Synthroid (Levothyroxine Sodium) 75 Mcg Tablet 1 Tab PO DAILY Meloxicam 15 Mg Tablet 1 Tab PO DAILY Vitals/I & O Vital Sign - Last 24 Hours 07/01/16 07/01/16 07/01/16 07/01/16 15:00 17:20 19:43 19:43 Temp 96.8 97.1 97.8 96.8 97.1 97.8 Pulse 69 67 63 Resp 18 20 18 B/P 127/52 138/49 165/80 Pulse Ox 97 97 100 O2 Delivery Room Air Room Air Simple Mask Mask O2 Flow Rate 10 10 07/01/16 07/01/16 07/01/16 07/01/16 19:56 19:58 19:58 20:00 Pulse 66 64 62 Resp 18 B/P 165/60 162/52 162/52 Pulse Ox 98 O2 Delivery Room Air Simple Mask O2 Flow Rate 10 07/01/16 07/01/16 07/01/16 07/01/16 20:13 20:28 20:43 20:56 Temp 97.3 97.3 Pulse 66 64 68 68 Resp 18 18 18 20 B/P 130/59 93/40 114/45 97/41 Pulse Ox 97 96 96 98 O2 Delivery Room Air Room Air Room Air Room Air 07/01/16 07/01/16 07/01/16 07/01/16 21:00 21:20 21:35 21:41 Pulse 70 72 Resp 22 B/P 110/59 90/37 Pulse Ox 98 O2 Delivery Room Air Room Air 07/01/16 07/01/16 07/01/16 07/01/16 21:41 21:51 22:05 22:11 Pulse 70 70 68 Resp 20 B/P 100/44 109/48 114/46 07/01/16 07/01/16 07/01/16 07/01/16 22:20 22:35 23:00 23:35 Temp 97.7 97.7 Pulse 66 68 70 70 Resp 17 B/P 98/38 106/39 106/49 104/41 Pulse Ox 95 O2 Delivery Room Air 07/02/16 07/02/16 07/02/16 07/02/16 00:35 01:35 02:35 03:04 Temp 97.9 97.9 Pulse 72 68 68 69 Resp 17 B/P 110/41 107/41 115/51 97/45 Pulse Ox 95 O2 Delivery Room Air 07/02/16 07/02/16 07/02/16 07/02/16 03:35 07:00 08:00 11:00 Temp 97.9 97.6 97.9 97.6 Pulse 67 71 80 Resp 20 19 B/P 108/53 98/55 108/50 Pulse Ox 99 97 O2 Delivery Room Air Room Air Room Air Intake and Output 07/01/16 07/01/16 07/02/16 15:00 23:00 07:00 Intake Total 1250 ml 912 ml Output Total 75 ml 310 ml Balance 1175 ml 602 ml PRASHANTHNIAL K III DO July 02, 2016 13:24
[2016-07-02] MEDS: HYDROCODONE/APAP 5/325MG TABLET. PO PRN ×2 (16:37→20:38)
[2016-07-02] MEDS ORDERED: ATORVASTATIN CALCIUM 10 MG TABLET. PO SCH (21:00)
[2016-07-03] MEDS: IV NORMAL SALINE 1000ML BAG 1,000 ML IV SCH (00:30)
[2016-07-03 02:51] VITALS: BP 121/63
[2016-07-03 06:02] LABS: CALCIUM 8.2 mg/dL (8.5-10.1); CREATININE 0.6 mg/dL (0.6-1.0); GFR 98.3; POTASSIUM 3.8 mmol/L (3.5-5.1)
[2016-07-03] MEDS: LEVOFLOXACIN 500 MG TABLET PO SCH (06:10)
[2016-07-03] MEDS: LEVOTHYROXINE 75 MCG TABLET PO SCH (06:10)
[2016-07-03 07:30] VITALS: BP 129/58
--- NOTE | 2016-07-03 07:33 | PDOC ---
PROGRESS NOTES Subjective Subjective Patient is sitting up in bed, and comfortable. She is up and walking, and tolerating diet. Objective Objective Vital Signs Date Time Temp Pulse Resp B/P Pulse Ox O2 Delivery O2 Flow Rate FiO2 07/03/16 02:51 97.8 65 16 121/63 94 Room Air 97.8 07/02/16 16:37 10.0 Intake and Output 07/03/16 07:00 Intake Total 880 ml Balance 880 ml Intake Oral 880 ml # Voids 1 Physical Exam Physical Exam Gen - NAD, alert and oriented x3 Neck - incision clean and intact, no erythema, +mild crystal-incisional edema Resp - Non-labored breathing, normal chest rise Abd - soft, ND/ND Neuro - CN II-XII intact, motor and sensation intact Diagnosis DIAGNOSIS 71 y/o female POD#2 s/p R CEA Problems: Assessment Assessment Problems Medical Problems: (1) Acute CVA (cerebrovascular accident) Status: Acute (2) Carotid stenosis, bilateral Status: Acute Plan Plan of Care - Continue aspirin, plavix, statin - Patient ready for discharge, per PT. Patient states home with home PT - recommmend smoking cessation - UA negative, on levaquin - Will need to follow-up with Dr. Wu in 2 weeks in office Comment Review of Relevant I have reviewed the following items page (where applicable) has been applied. Labs Laboratory Tests Test 07/02/16 03:05 07/02/16 04:30 07/03/16 04:45 Sodium Level 139mmol/L (136-145) 139mmol/L (136-145) Potassium Level 3.6mmol/L (3.5-5.1) 3.8mmol/L (3.5-5.1) Chloride Level 105mmol/L (98-107) 104mmol/L (98-107) Carbon Dioxide Level 27mmol/L (21-32) 30mmol/L (21-32) Anion Gap 7 (6-14) 5 (6-14) Blood Urea Nitrogen 17mg/dL (7-20) 13mg/dL (7-20) Creatinine 0.5mg/dL (0.6-1.0) 0.6mg/dL (0.6-1.0) Estimated GFR (Cockcroft-Gault) 121.3 98.3 Glucose Level 77mg/dL (70-99) 94mg/dL (70-99) Calcium Level 8.0mg/dL (8.5-10.1) 8.2mg/dL (8.5-10.1) Urine Collection Type Unknown Urine Color Yellow Urine Clarity Clear Urine pH 7.0 Urine Specific [place] 1.025 Urine Protein Negativemg/dL (NEG-TRACE) Urine Glucose (UA) Negativemg/dL (NEG) Urine Ketones (Stick) Negativemg/dL (NEG) Urine Blood Negative (NEG) Urine Nitrite Negative (NEG) Urine Bilirubin Negative (NEG) Urine Urobilinogen Dipstick 1.0mg/dL (0.2 mg/dL) Urine Leukocyte Esterase Negative (NEG) Urine RBC 0/HPF (0-2) Urine WBC 0/HPF (0-4) Urine Squamous Epithelial Cells Few/LPF Urine Bacteria 0/HPF (0-FEW) Urine Mucus Mod/LPF Laboratory Tests Test 07/03/16 04:45 Sodium Level 139mmol/L (136-145) Potassium Level 3.8mmol/L (3.5-5.1) Chloride Level 104mmol/L (98-107) Carbon Dioxide Level 30mmol/L (21-32) Anion Gap 5 (6-14) Blood Urea Nitrogen 13mg/dL (7-20) Creatinine 0.6mg/dL (0.6-1.0) Estimated GFR (Cockcroft-Gault) 98.3 Glucose Level 94mg/dL (70-99) Calcium Level 8.2mg/dL (8.5-10.1) Medications Current Medications Aspirin (Ecotrin) 325 mg 1X ONCE PO Last administered on 06/29/16t 18:04; Start 06/29/16 at 18:00; Stop 06/29/16 at 18:01; Status DC Ondansetron HCl (Zofran) 4 mg PRN Q8HRS PRN IV NAUSEA/VOMITING; Start 06/29/16 at 18:00; Stop 06/30/16 at 17:59; Status DC Fentanyl Citrate (Fentanyl 2ml Vial) 50 mcg PRN Q2HR PRN IV PAIN; Start at 18:00; Stop 06/30/16 at 17:59; Status DC Cetirizine HCl (Zyrtec) 10 mg DAILY PO Last administered on 07/02/16 08:59; Start 06/30/16 at 09:00 Hydrochlorothiazide (Hydrodiuril) 25 mg DAILY PO Last administered on 07/02/16 08:59; Start 06/30/16 at 09:00 Levothyroxine Sodium (Synthroid) 75 mcg DAILY07 PO Last administered on 06:10; Start 06/30/16 at 07:00 Non-Formulary Medication 1.5 mg DAILY PO Last administered on 07/02/16 08:58; Start 06/30/16 at 09:00 Meloxicam (Mobic) 15 mg DAILY PO Last administered on 07/01/16 08:58; Start at 09:00; Stop 07/01/16 at 09:05; Status DC Prednisone (Prednisone) 60 mg 1X ONCE PO Last administered on 06/30/16 02:19 ; Start 06/29/16 at 23:30; Stop 06/29/16 at 23:31; Status DC Levofloxacin (Levaquin) 500 mg DAILY06 PO Last administered on 07/03/16 06:10; Start 06/30/16 at 11:30; Stop 07/04/16 at 11:29 Ergocalciferol (Vitamin D2) 50,000 unit WEEKLY PO Last administered on 08:58; Start 07/01/16 at 09:00 Lactobacillus Acidophilus (Bacid, Wendy-Bid) 1 tab DAILY PO Last administered on 07/02/16 08:58; Start 07/01/16 at 09:00 Aspirin (Gal[place] Aspirin) 325 mg DAILYWBKFT PO Last administered on 07/02/16 08: 59; Start 06/30/16 at 12:00 Clopidogrel Bisulfate (Plavix) 75 mg DAILYWBKFT PO Last administered on 08:59; Start 07/01/16 at 08:00 Iohexol (Omnipaque 350 Mg/ml) 100 ml 1X ONCE IV Last administered on 13:30; Start 06/30/16 at 13:30; Stop 06/30/16 at 13:39; Status DC Iohexol (Omnipaque 350 Mg/ml) 100 ml 1X ONCE IV Last administered on 13:30; Start 06/30/16 at 13:30; Stop 06/30/16 at 13:39; Status DC Info (Do NOT chart on this entry -- for MONITORING) 1 each PRN DAILY PRN MC SEE COMMENTS; Start 06/30/16 at 13:45; Stop 07/02/16 at 13:44; Status DC Potassium Chloride 40 meq 40 meq 1X ONCE PO Last administered on 07/01/16 09: 30; Start 07/01/16 at 09:30; Stop 07/01/16 at 09:31; Status DC Cefazolin Sodium/ Dextrose (Ancef 2gm Premix) 50 ml @ 100 mls/hr 1X ONCE IV Last administered on 07/01/16 18:30; Start 07/01/16 at 18:00; Stop 07/01/16 at 18: 29; Status DC Fentanyl Citrate (Fentanyl 2ml Vial) 25 mcg PRN Q5MIN PRN IV MILD PAIN; Start 07/01/16 at 09:45; Stop 07/02/16 at 09:44; Status DC Fentanyl Citrate (Fentanyl 2ml Vial) 50 mcg PRN Q5MIN PRN IV MODERATE PAIN; Start 07/01/16 at 09:45; Stop 07/02/16 at 09:44; Status DC Morphine Sulfate 1 mg 1 mg PRN Q10MIN PRN IV SEVERE PAIN; Start 07/01/16 at 09: 45; Stop 07/02/16 at 09:44; Status DC Lactated Ringer's (Iv Lactated Ringers) 1,000 ml @ 30 mls/hr Q24H IV ; Start at 09:35; Stop 07/01/16 at 21:34; Status DC Lidocaine HCl 2 ml PRN 1X PRN ID PRIOR TO IV START; Start 07/01/16 at 09:45; Stop 07/02/16 at 09:44; Status DC Hydromorphone HCl (Dilaudid) 0.5 mg PRN Q10MIN PRN IV SEV PAIN, Second choice; Start 07/01/16 at 09:45; Stop 07/02/16 at 09:44; Status DC Prochlorperazine Edisylate (Compazine) 5 mg PACU PRN PRN IV NAUSEA, MRX1; Start 07/01/16 at 09:45; Stop 07/02/16 at 09:44; Status DC Cellulose 1 each STK-MED ONCE .ROUTE Last administered on 07/01/16 19:34; Start 07/01/16 at 15:02; Stop 07/01/16 at 15:03; Status DC Protamine Sulfate 50 mg STK-MED ONCE IV ; Start 07/01/16 at 15:03; Stop 07/01/16 at 15:04; Status DC Lidocaine HCl 20 ml STK-MED ONCE .ROUTE Last administered on 07/01/16 18:53; Start 07/01/16 at 15:03; Stop 07/01/16 at 15:04; Status DC Lidocaine HCl 20 ml 20 ml STK-MED ONCE .ROUTE Last administered on 07/01/16 18: 54; Start 07/01/16 at 15:03; Stop 07/01/16 at 15:04; Status DC Heparin Sodium (Porcine) 5000 unit/Lactated Ringer's 505 ml @ 505 mls/hr 1X PERIOP ONCE IRR Last administered on 07/01/16 18:53; Start 07/01/16 at 15:06; Stop 07/01/16 at 16:05; Status DC Cefazolin Sodium 1 gm/Sodium Chloride 500 ml @ 500 mls/hr 1X PERIOP ONCE IRR Last administered on 07/01/16 18:53; Start 07/01/16 at 15:07; Stop 07/01/16 at 16: 06; Status DC Propofol (Diprivan) 20 ml @ As Directed STK-MED ONCE IV ; Start 07/01/16 at 15:43 ; Stop 07/01/16 at 15:44; Status DC Lidocaine HCl (Lidocaine HCl 2% Abboject) 100 mg STK-MED ONCE .ROUTE ; Start 07/01/16 at 15:43; Stop 07/01/16 at 15:44; Status DC Midazolam HCl (Versed) 2 mg STK-MED ONCE .ROUTE ; Start 07/01/16 at 17:47; Stop 07/01/16 at 17:48; Status DC Ropivacaine 40 mg STK-MED ONCE .ROUTE ; Start 07/01/16 at 17:58; Stop 07/01/16 at 17:59; Status DC Midazolam HCl (Versed) 2 mg 1X PREOP PRN IV ANXIETY Last administered on 17:56; Start 07/01/16 at 18:15; Stop 07/02/16 at 15:03; Status DC Sodium Chloride 3 ml 3 ml QSHIFT PRN IV AFTER MEDS AND BLOOD DRAWS; Start at 18:15 Sodium Chloride (Iv Sodium Chloride 0.9% 1000ml Bag) 1,000 ml @ 100 mls/hr Q10H IV Last administered on 07/01/16 23:08; Start 07/01/16 at 18:30 Morphine Sulfate 2 mg PRN Q1HR PRN IV PAIN Last administered on 07/01/16 21:41 ; Start 07/01/16 at 18:15; Stop 07/02/16 at 10:01; Status DC Oxycodone HCl (Roxicodone) 10 mg PRN Q4HRS PRN PO MODERATE PAIN, SEVERE PAIN; Start 07/01/16 at 18:15; Stop 07/02/16 at 10:01; Status DC Ondansetron HCl 4 mg 4 mg PRN Q6HRS PRN IV NAUESA, 1ST CHOICE; Start 07/01/16 at 18:15 Propofol (Diprivan) 50 ml @ As Directed STK-MED ONCE IV ; Start 07/01/16 at 18:34 ; Stop 07/01/16 at 18:35; Status DC Heparin Sodium (Porcine) (Heparin Sodium) 10,000 unit STK-MED ONCE .ROUTE ; Start 07/01/16 at 18:45; Stop 07/01/16 at 18:46; Status DC Lidocaine HCl 30 ml STK-MED ONCE .ROUTE ; Start 07/01/16 at 18:48; Stop 07/01/16 at 18:49; Status DC Hydralazine HCl (Apresoline) 10 mg PRN Q4HRS PRN IVP ELEVATED BP, SEE COMMENTS ; Start 07/01/16 at 20:00 Labetalol HCl (Normodyne) 10 mg PRN Q2HR PRN IVP HYPERTENSION, SEE COMMENTS; Start 07/01/16 at 20:00 Hydralazine HCl (Apresoline) 5 mg 1X PACU PRN IVP ELEVATED BP, SEE COMMENTS Last administered on 07/01/16 20:00; Start 07/01/16 at 20:00; Stop 07/02/16 at 15: 02; Status DC Acetaminophen/ Hydrocodone Bitart (Lortab 5/325) 1 tab PRN Q4HRS PRN PO PAIN Last administered on 07/02/16 20:38; Start 07/02/16 at 10:00 Atorvastatin Calcium (Lipitor) 10 mg QHS PO Last administered on 07/02/16 20:35 ; Start 07/02/16 at 21:00 Active Scripts Active Reported Zyrtec (Cetirizine Hcl) 10 Mg Tablet 10 Mg PO DAILY Estropipate 1.5 Mg Tablet 1.5 Mg PO DAILY Hydrochlorothiazide Tablet (Hydrochlorothiazide) 25 Mg Tablet 1 Tab PO DAILY Synthroid (Levothyroxine Sodium) 75 Mcg Tablet 1 Tab PO DAILY Meloxicam 15 Mg Tablet 1 Tab PO DAILY Vitals/I & O Vital Sign - Last 24 Hours 07/02/16 07/02/16 07/02/16 07/02/16 08:00 11:00 15:00 16:37 Temp 97.6 98.1 97.6 98.1 Pulse 80 74 Resp 19 20 B/P 108/50 110/54 Pulse Ox 97 98 97 O2 Delivery Room Air Room Air Room Air Room Air O2 Flow Rate 10.0 07/02/16 07/02/16 07/02/16 07/02/16 17:37 19:41 20:00 20:38 Temp 98.0 98.0 Pulse 70 Resp 20 22 B/P 109/51 Pulse Ox 97 97 O2 Delivery Room Air Room Air Room Air 07/02/16 07/02/16 07/03/16 21:38 23:32 02:51 Temp 97.8 97.8 97.8 97.8 Pulse 68 65 Resp 20 18 16 B/P 106/48 121/63 Pulse Ox 94 94 O2 Delivery Room Air Room Air Intake and Output 07/02/16 07/02/16 07/03/16 15:00 23:00 07:00 Intake Total 240 ml 240 ml 400 ml Balance 240 ml 240 ml 400 ml SARAHY WANG MD July 03, 2016 07:33
[2016-07-03] MEDS: LACTOBACILLUS ACIDOPH & BULGAR 1 TABLET. PO SCH (09:21)
[2016-07-03] MEDS: HYDROCHLOROTHIAZIDE 25 MG TABLET PO SCH (09:23)
[2016-07-03] MEDS: CLOPIDOGREL BISULFATE 75 MG TABLET PO SCH (09:23)
[2016-07-03] MEDS: CETIRIZINE HCL 10 MG TABLET. PO SCH (09:23)
[2016-07-03] MEDS: ASPIRIN 325 MG TABLET PO SCH (09:23)
[2016-07-03] MEDS: [UNRECOGNIZED DRUG - OTHER] PO SCH (09:47)
--- NOTE | 2016-07-03 11:21 | PDOC ---
PROGRESS NOTES Assessment Problems Medical Problems: (1) Acute CVA (cerebrovascular accident) Status: Acute (2) Carotid stenosis, bilateral Status: Acute Acute/subacute multiple infarcts in bilateral hemispheres, embolic etiology. Occlusion of the left ICA from its origin at the carotid bulb all way to the distal intracranial bifurcation. Proximal right ICA stenosis, status-post Right carotid endarterectomy Plan Plavix 75 mg q am. ASA 325 mg daily. Statin I again discussed smoking cessation Okay for discharge Follow-up neurology as needed Subjective No complaints, wants to go home Objective Vital Signs Date Time Temp Pulse Resp B/P Pulse Ox O2 Delivery O2 Flow Rate FiO2 07/03/16 08:00 Room Air 07/03/16 07:30 97.9 76 20 129/58 94 97.9 07/02/16 16:37 10.0 Intake and Output 07/03/16 07:00 Intake Total 880 ml Balance 880 ml Intake Oral 880 ml # Voids 1 PHYSICAL EXAM Alert. Oriented to time, place and person. PERRL. EOMI. CN: no focal findings. Muscle tone: normal. Muscle strength: 5-/5 on right, 5/5 on left DTR: 2+ Plantar reflex: flexor Gait: not examined in bed. Sensory exam: no abnormal findings. No cerebellar signs elicited. Review of Relevant I have reviewed the following items page (where applicable) has been applied. Labs Laboratory Tests Test 07/02/16 03:05 07/02/16 04:30 07/03/16 04:45 Sodium Level 139mmol/L (136-145) 139mmol/L (136-145) Potassium Level 3.6mmol/L (3.5-5.1) 3.8mmol/L (3.5-5.1) Chloride Level 105mmol/L (98-107) 104mmol/L (98-107) Carbon Dioxide Level 27mmol/L (21-32) 30mmol/L (21-32) Anion Gap 7 (6-14) 5 (6-14) Blood Urea Nitrogen 17mg/dL (7-20) 13mg/dL (7-20) Creatinine 0.5mg/dL (0.6-1.0) 0.6mg/dL (0.6-1.0) Estimated GFR (Cockcroft-Gault) 121.3 98.3 Glucose Level 77mg/dL (70-99) 94mg/dL (70-99) Calcium Level 8.0mg/dL (8.5-10.1) 8.2mg/dL (8.5-10.1) Urine Collection Type Unknown Urine Color Yellow Urine Clarity Clear Urine pH 7.0 Urine Specific [place] 1.025 Urine Protein Negativemg/dL (NEG-TRACE) Urine Glucose (UA) Negativemg/dL (NEG) Urine Ketones (Stick) Negativemg/dL (NEG) Urine Blood Negative (NEG) Urine Nitrite Negative (NEG) Urine Bilirubin Negative (NEG) Urine Urobilinogen Dipstick 1.0mg/dL (0.2 mg/dL) Urine Leukocyte Esterase Negative (NEG) Urine RBC 0/HPF (0-2) Urine WBC 0/HPF (0-4) Urine Squamous Epithelial Cells Few/LPF Urine Bacteria 0/HPF (0-FEW) Urine Mucus Mod/LPF Laboratory Tests Test 07/03/16 04:45 Sodium Level 139mmol/L (136-145) Potassium Level 3.8mmol/L (3.5-5.1) Chloride Level 104mmol/L (98-107) Carbon Dioxide Level 30mmol/L (21-32) Anion Gap 5 (6-14) Blood Urea Nitrogen 13mg/dL (7-20) Creatinine 0.6mg/dL (0.6-1.0) Estimated GFR (Cockcroft-Gault) 98.3 Glucose Level 94mg/dL (70-99) Calcium Level 8.2mg/dL (8.5-10.1) Medications Current Medications Aspirin (Ecotrin) 325 mg 1X ONCE PO Last administered on 06/29/16t 18:04; Start 06/29/16 at 18:00; Stop 06/29/16 at 18:01; Status DC Ondansetron HCl (Zofran) 4 mg PRN Q8HRS PRN IV NAUSEA/VOMITING; Start 06/29/16 at 18:00; Stop 06/30/16 at 17:59; Status DC Fentanyl Citrate (Fentanyl 2ml Vial) 50 mcg PRN Q2HR PRN IV PAIN; Start at 18:00; Stop 06/30/16 at 17:59; Status DC Cetirizine HCl (Zyrtec) 10 mg DAILY PO Last administered on 07/03/16 09:23; Start 06/30/16 at 09:00 Hydrochlorothiazide (Hydrodiuril) 25 mg DAILY PO Last administered on 07/03/16 09:23; Start 06/30/16 at 09:00 Levothyroxine Sodium (Synthroid) 75 mcg DAILY07 PO Last administered on 06:10; Start 06/30/16 at 07:00 Non-Formulary Medication 1.5 mg DAILY PO Last administered on 07/03/16 09:47; Start 06/30/16 at 09:00 Meloxicam (Mobic) 15 mg DAILY PO Last administered on 07/01/16 08:58; Start at 09:00; Stop 07/01/16 at 09:05; Status DC Prednisone (Prednisone) 60 mg 1X ONCE PO Last administered on 06/30/16 02:19 ; Start 06/29/16 at 23:30; Stop 06/29/16 at 23:31; Status DC Levofloxacin (Levaquin) 500 mg DAILY06 PO Last administered on 07/03/16 06:10; Start 06/30/16 at 11:30; Stop 07/04/16 at 11:29 Ergocalciferol (Vitamin D2) 50,000 unit WEEKLY PO Last administered on 08:58; Start 07/01/16 at 09:00 Lactobacillus Acidophilus (Bacid, Wendy-Bid) 1 tab DAILY PO Last administered on 07/03/16 09:21; Start 07/01/16 at 09:00 Aspirin ([place] Aspirin) 325 mg DAILYWBKFT PO Last administered on 07/03/16 09: 23; Start 06/30/16 at 12:00 Clopidogrel Bisulfate (Plavix) 75 mg DAILYWBKFT PO Last administered on 09:23; Start 07/01/16 at 08:00 Iohexol (Omnipaque 350 Mg/ml) 100 ml 1X ONCE IV Last administered on 13:30; Start 06/30/16 at 13:30; Stop 06/30/16 at 13:39; Status DC Iohexol (Omnipaque 350 Mg/ml) 100 ml 1X ONCE IV Last administered on 13:30; Start 06/30/16 at 13:30; Stop 06/30/16 at 13:39; Status DC Info (Do NOT chart on this entry -- for MONITORING) 1 each PRN DAILY PRN MC SEE COMMENTS; Start 06/30/16 at 13:45; Stop 07/02/16 at 13:44; Status DC Potassium Chloride 40 meq 40 meq 1X ONCE PO Last administered on 07/01/16 09: 30; Start 07/01/16 at 09:30; Stop 07/01/16 at 09:31; Status DC Cefazolin Sodium/ Dextrose (Ancef 2gm Premix) 50 ml @ 100 mls/hr 1X ONCE IV Last administered on 07/01/16 18:30; Start 07/01/16 at 18:00; Stop 07/01/16 at 18: 29; Status DC Fentanyl Citrate (Fentanyl 2ml Vial) 25 mcg PRN Q5MIN PRN IV MILD PAIN; Start 07/01/16 at 09:45; Stop 07/02/16 at 09:44; Status DC Fentanyl Citrate (Fentanyl 2ml Vial) 50 mcg PRN Q5MIN PRN IV MODERATE PAIN; Start 07/01/16 at 09:45; Stop 07/02/16 at 09:44; Status DC Morphine Sulfate 1 mg 1 mg PRN Q10MIN PRN IV SEVERE PAIN; Start 07/01/16 at 09: 45; Stop 07/02/16 at 09:44; Status DC Lactated Ringer's (Iv Lactated Ringers) 1,000 ml @ 30 mls/hr Q24H IV ; Start at 09:35; Stop 07/01/16 at 21:34; Status DC Lidocaine HCl 2 ml PRN 1X PRN ID PRIOR TO IV START; Start 07/01/16 at 09:45; Stop 07/02/16 at 09:44; Status DC Hydromorphone HCl (Dilaudid) 0.5 mg PRN Q10MIN PRN IV SEV PAIN, Second choice; Start 07/01/16 at 09:45; Stop 07/02/16 at 09:44; Status DC Prochlorperazine Edisylate (Compazine) 5 mg PACU PRN PRN IV NAUSEA, MRX1; Start 07/01/16 at 09:45; Stop 07/02/16 at 09:44; Status DC Cellulose 1 each STK-MED ONCE .ROUTE Last administered on 07/01/16 19:34; Start 07/01/16 at 15:02; Stop 07/01/16 at 15:03; Status DC Protamine Sulfate 50 mg STK-MED ONCE IV ; Start 07/01/16 at 15:03; Stop 07/01/16 at 15:04; Status DC Lidocaine HCl 20 ml STK-MED ONCE .ROUTE Last administered on 07/01/16 18:53; Start 07/01/16 at 15:03; Stop 07/01/16 at 15:04; Status DC Lidocaine HCl 20 ml 20 ml STK-MED ONCE .ROUTE Last administered on 07/01/16 18: 54; Start 07/01/16 at 15:03; Stop 07/01/16 at 15:04; Status DC Heparin Sodium (Porcine) 5000 unit/Lactated Ringer's 505 ml @ 505 mls/hr 1X PERIOP ONCE IRR Last administered on 07/01/16 18:53; Start 07/01/16 at 15:06; Stop 07/01/16 at 16:05; Status DC Cefazolin Sodium 1 gm/Sodium Chloride 500 ml @ 500 mls/hr 1X PERIOP ONCE IRR Last administered on 07/01/16 18:53; Start 07/01/16 at 15:07; Stop 07/01/16 at 16: 06; Status DC Propofol (Diprivan) 20 ml @ As Directed STK-MED ONCE IV ; Start 07/01/16 at 15:43 ; Stop 07/01/16 at 15:44; Status DC Lidocaine HCl (Lidocaine HCl 2% Abboject) 100 mg STK-MED ONCE .ROUTE ; Start 07/01/16 at 15:43; Stop 07/01/16 at 15:44; Status DC Midazolam HCl (Versed) 2 mg STK-MED ONCE .ROUTE ; Start 07/01/16 at 17:47; Stop 07/01/16 at 17:48; Status DC Ropivacaine 40 mg STK-MED ONCE .ROUTE ; Start 07/01/16 at 17:58; Stop 07/01/16 at 17:59; Status DC Midazolam HCl (Versed) 2 mg 1X PREOP PRN IV ANXIETY Last administered on 17:56; Start 07/01/16 at 18:15; Stop 07/02/16 at 15:03; Status DC Sodium Chloride 3 ml 3 ml QSHIFT PRN IV AFTER MEDS AND BLOOD DRAWS; Start at 18:15 Sodium Chloride (Iv Sodium Chloride 0.9% 1000ml Bag) 1,000 ml @ 100 mls/hr Q10H IV Last administered on 07/01/16 23:08; Start 07/01/16 at 18:30 Morphine Sulfate 2 mg PRN Q1HR PRN IV PAIN Last administered on 07/01/16 21:41 ; Start 07/01/16 at 18:15; Stop 07/02/16 at 10:01; Status DC Oxycodone HCl (Roxicodone) 10 mg PRN Q4HRS PRN PO MODERATE PAIN, SEVERE PAIN; Start 07/01/16 at 18:15; Stop 07/02/16 at 10:01; Status DC Ondansetron HCl 4 mg 4 mg PRN Q6HRS PRN IV NAUESA, 1ST CHOICE; Start 07/01/16 at 18:15 Propofol (Diprivan) 50 ml @ As Directed STK-MED ONCE IV ; Start 07/01/16 at 18:34 ; Stop 07/01/16 at 18:35; Status DC Heparin Sodium (Porcine) (Heparin Sodium) 10,000 unit STK-MED ONCE .ROUTE ; Start 07/01/16 at 18:45; Stop 07/01/16 at 18:46; Status DC Lidocaine HCl 30 ml STK-MED ONCE .ROUTE ; Start 07/01/16 at 18:48; Stop 07/01/16 at 18:49; Status DC Hydralazine HCl (Apresoline) 10 mg PRN Q4HRS PRN IVP ELEVATED BP, SEE COMMENTS ; Start 07/01/16 at 20:00 Labetalol HCl (Normodyne) 10 mg PRN Q2HR PRN IVP HYPERTENSION, SEE COMMENTS; Start 07/01/16 at 20:00 Hydralazine HCl (Apresoline) 5 mg 1X PACU PRN IVP ELEVATED BP, SEE COMMENTS Last administered on 07/01/16 20:00; Start 07/01/16 at 20:00; Stop 07/02/16 at 15: 02; Status DC Acetaminophen/ Hydrocodone Bitart (Lortab 5/325) 1 tab PRN Q4HRS PRN PO PAIN Last administered on 07/02/16 20:38; Start 07/02/16 at 10:00 Atorvastatin Calcium (Lipitor) 10 mg QHS PO Last administered on 07/02/16 20:35 ; Start 07/02/16 at 21:00 Active Scripts Active Reported Zyrtec (Cetirizine Hcl) 10 Mg Tablet 10 Mg PO DAILY Estropipate 1.5 Mg Tablet 1.5 Mg PO DAILY Hydrochlorothiazide Tablet (Hydrochlorothiazide) 25 Mg Tablet 1 Tab PO DAILY Synthroid (Levothyroxine Sodium) 75 Mcg Tablet 1 Tab PO DAILY Meloxicam 15 Mg Tablet 1 Tab PO DAILY Vitals/I & O Vital Sign - Last 24 Hours 07/02/16 07/02/16 07/02/16 07/02/16 15:00 16:37 17:37 19:41 Temp 98.1 98.0 98.1 98.0 Pulse 74 70 Resp 20 20 B/P 110/54 109/51 Pulse Ox 98 97 97 97 O2 Delivery Room Air Room Air Room Air Room Air O2 Flow Rate 10.0 07/02/16 07/02/16 07/02/16 07/02/16 20:00 20:38 21:38 23:32 Temp 97.8 97.8 Pulse 68 Resp 22 20 18 B/P 106/48 Pulse Ox 94 O2 Delivery Room Air Room Air 07/03/16 07/03/16 07/03/16 02:51 07:30 08:00 Temp 97.8 97.9 97.8 97.9 Pulse 65 76 Resp 16 20 B/P 121/63 129/58 Pulse Ox 94 94 O2 Delivery Room Air Room Air Room Air Intake and Output 07/02/16 07/02/16 07/03/16 15:00 23:00 07:00 Intake Total 240 ml 240 ml 400 ml Balance 240 ml 240 ml 400 ml THI LLOYD MD July 03, 2016 11:21
[2016-07-03] MEDS ORDERED: ATOR10TA60 PO (12:00)
[2016-07-03] MEDS ORDERED: CLOP75TA PO (12:00)
[2016-07-03] MEDS ORDERED: ASPI325T4 PO (12:00)
[2016-07-03 12:20] VITALS: BP 110/51
== END 2016-07-03 13:34 | disposition home or self-care (01) | DRG 37 ==
LOC: ER 17:16 → 6 SOUTH 17:55 → 2 NORTH 07-01 21:11
PROVIDERS: ADMIT Internal Medicine; ATTEND Internal Medicine
PROC: 03CK0ZZ Extirpation of Matter from Right Internal Carotid Artery, Open Approach (ICD-10-PCS; 2016-07-01)
PROC: 03CM0ZZ Extirpation of Matter from Right External Carotid Artery, Open Approach (ICD-10-PCS; 2016-07-01)
PROC: 03CH0ZZ Extirpation of Matter from Right Common Carotid Artery, Open Approach (ICD-10-PCS; principal; 2016-07-01 18:00)
DX: I63.132 Cerebral infarction due to embolism of left carotid artery (principal); G93.41 Metabolic encephalopathy; E03.9 Hypothyroidism, unspecified; F17.210 Nicotine dependence, cigarettes, uncomplicated; H54.0 Blindness, both eyes; I10 Essential (primary) hypertension; J45.909 Unspecified asthma, uncomplicated; Z79.02 Long term (current) use of antithrombotics/antiplatelets; Z79.82 Long term (current) use of aspirin; Z82.49 Family history of ischemic heart disease and other diseases of the circulatory system; Z86.73 Personal history of transient ischemic attack (TIA), and cerebral infarction without residual deficits
CPT/HCPCS: 99285; C8929; 36415; 70496; 70498; 70551; 80048; 80053; 80061; 81001; 83880; 84443; 84484; 85027; 85610; 85651; 85730; 93880; C1769; J0360; J0690; J2250; J2270; J2704; J2795; J7030; J7040; J7120; J7512; Q9967; 97112; 97116; 97530